=== PATIENT | male | born 1945 | race African-American/Black ===

== ENCOUNTER 2018-07-31 16:42 | Inpatient (IN) | payer OTHER ==
[~2018-07-31] VITALS: Ht 182.9 cm; Wt 85.7 kg
[~2018-07-31 16:42] MED LIST: ABAC1TAB15 PO; CHOL100011 PO; GABA600T1 PO; HYDR25TA32 PO; LISI40TA4 PO; SENN-3 PO; UMEC62.5 IH
--- NOTE | 2018-07-31 16:45 | NUR ---
PATIENT WHEELCHAIR ASSISTED TO BED 6.
[2018-07-31 16:53] VITALS: BP 118/72
--- NOTE | 2018-07-31 16:59 | NUR ---
PATIENT BIB NIECE TO THE ED WITH THE CHIEF C/O SOB X EARLIER TODAY . PT SATURATING AT 88% IN ROOM AIR, PT PUT ON 2L NASAL CANNULA NOW SAT AT 95%, EVEN AND UNLABORED BREATHING. PLACED PT ON COMFORTABLE POSITION. HOB ELEVATED. PT HAS HX OF COPD. LUNGS CLEAR. SKIN IS PINK/WARM/DRY; AAOX4. HR EVEN AND REGULAR; PT DENIES ANY CP, OR COUGH AT THIS TIME; PATIENT STATES BACK PAIN OF 10/10 AT THIS TIME; VSS; PATIENT POSITIONED FOR COMFORT; HOB ELEVATED; BEDRAILS UP X2; BED DOWN. ER MD MADE AWARE OF PT STATUS.
[2018-07-31] MEDS ORDERED: LEVOFLOXACIN 500 MG/D5W PREMIX 100 ML IV ONE (18:00)
[2018-07-31] MEDS: KETOROLAC 30 MG/ML VIAL IVP ONE ×2 (18:28→18:32)
[2018-07-31] MEDS ORDERED: MORPHINE SULFATE 4 MG/ML SYR IVP ONE (18:30)
--- NOTE | 2018-07-31 18:30 | NUR ---
PT REFUSED TORADOL FOR PAIN. DR. ALMANZA AWARE.
[2018-07-31 18:44] LABS: BASOPHILS % (AUTO) 0.3 % (0.0-2.0); EOSINOPHILS % (AUTO) 0.1 % (0.0-4.0); HEMATOCRIT 25.9 % (36-52); HEMOGLOBIN 8.2 g/dL (12.0-18.0); LYMPHOCYTES # (AUTO) 0.6 K/uL (2.0-11.5); LYMPHOCYTES % (AUTO) 12.3 % (20.5-51.1); MEAN CORPUSCULAR HEMOGLOBIN 25 pg (27-31); MEAN CORPUSCULAR HGB CONC 32 g/dL (33-37); MEAN CORPUSCULAR VOLUME 77.9 fL (80-94); MONOCYTES # (AUTO) 0.5 K/uL (0.8-1.0); MONOCYTES % (AUTO) 10.9 % (1.7-9.3); NEUTROPHILS # (AUTO) 3.6 K/uL (1.8-7.7); NEUTROPHILS % (AUTO) 76.4 % (42.2-75.2); PLATELET COUNT (AUTO) 303 K/uL (140-450); RED BLOOD CELL COUNT(AUTO) 3.32 MIL/uL (4.20-6.10); RED CELL DISTRIBUTION WIDTH 18.5 % (11.6-13.7); WHITE BLOOD COUNT (AUTO) 4.7 K/uL (4.8-10.8)
[2018-07-31 18:52] LABS: ANION GAP 8.5 (8-16); CHLORIDE 103 mmol/L (98-107); CREATININE 1.6 mg/dL (0.7-1.3); GLUCOSE 102 mg/dL (74-106); POTASSIUM 3.5 mmol/L (3.5-5.1); SODIUM SERUM 135 mmol/L (136-145); UREA NITROGEN, BLOOD 11 mg/dL (7-18)
[2018-07-31 19:06] LABS: ALBUMIN 2.5 g/dL (3.4-5.0); ASPARTATE AMINOTRANSFERASE 54 U/L (15-37); TOTAL BILIRUBIN 0.4 mg/dL (0.0-1.0)
--- NOTE | 2018-07-31 19:06 | NUR ---
REPORT GIVEN TO PRECIPITATOR SUPERVISOR RN FOR CONTINUITY OF CARE.
--- NOTE | 2018-07-31 19:06 | NUR ---
RECIEVED REPORT FROM OPAL ROSALES.
[2018-07-31 19:14] LABS: APPEARANCE,URINE CLEAR (CLEAR); BILIRUBIN,URINE NEGATIVE (NEGATIVE); BLOOD, URINE NEGATIVE (NEGATIVE); COLOR,URINE YELLOW (YELLOW); LEUKOCYTE ESTERASE ,URINE NEGATIVE (NEGATIVE); NITRITE, URINE NEGATIVE (NEGATIVE); UGLUCOSE NEGATIVE (NEGATIVE)
[2018-07-31] MEDS ORDERED: NACL 0.9% 1,000 ML IV ONE (20:15)
--- NOTE | 2018-07-31 20:20 | NUR ---
Dr. Kern evaluating patient at bedside.
[2018-07-31] MEDS ORDERED: methylPREDNISolone SS 125 MG in WATER STERILE 2 ML IV ONE (20:30)
[2018-07-31] MEDS ORDERED: MAG SULF 2000 MG/WATER PREMIX 50 ML IV ONE (20:30)
--- NOTE | 2018-07-31 21:08 | NUR ---
PT RESTING IN BED COMFORTABLY, O2 SAT AT 98% ON 1L VIA NASAL CANNULA, PT DENIES SOB AT THIS TIME. PROVIDED CRACKERS AND APPLE SAUCE FOR PT. SIDE RAIL UP X1, HOB ELEVATED, BED IN LOWEST POSITION. WILL CONTINUE TO MONITOR.
[2018-07-31] MEDS ORDERED: NACL 0.9% 1,000 ML IV SCH (22:57)
[2018-07-31] MEDS ORDERED: ACETAMINOPHEN 325 MG TAB PO PRN (23:00)
[2018-07-31] MEDS ORDERED: DOCUSATE SODIUM 100 MG GELCAP PO PRN (23:00)
[2018-07-31] MEDS ORDERED: ONDANSETRON 4 MG/2 ML VIAL IM/IVP PRN (23:00)
[2018-07-31] MEDS ORDERED: ALBUTEROL SULFATE/IPRATROPIU 3 ML SOL IH PRN (23:00)
[2018-07-31] MEDS ORDERED: HYDROcodone/APAP 5/325 MG 1 TAB TAB PO PRN (23:00)
--- NOTE | 2018-07-31 23:18 | NUR ---
RECEIVED FROM ER PER AISHA AWAKE AND ALERT. ORIENTED X 4. CLEAR SPEECH. GOOD AFFECT. TELEMETRY MONITORING. IVF SITE TO RAC #20. SKIN INTACT. DX. OF COPD EXACERBATION. ON 02 AT 2LPM/NC WITH 02 SAT OF 99%. CALL LIGHT WITH IN REACH. ORIENTED TO ROOM, CALL LIGHT AND RAPID RESPONSE USE. DENIES PAIN AT THIS TIME. MEDICATED IN ER WITH MORPHINE IVP. SEEN BY RESIDENT .
--- NOTE | 2018-07-31 23:25 | NUR ---
Patient will be admitted to care of Dr Fisher. Admited to tele via gurney with VSS. Will go to room 107B. Belongings list completed. Report to Adilene ROSALES.
[2018-07-31 23:30] LABS: MAGNESIUM 1.6 mg/dL (1.8-2.4); PHOSPHORUS 2.6 mg/dL (2.5-4.9); THYROID STIMULATING HORMONE 0.59 uIU/mL (0.34-3.74)
[2018-07-31] MEDS ORDERED: methylPREDNISolone SS 125 MG/2 ML VIAL IVP SCH (23:30)
[2018-07-31 23:59] LABS: BARBITURATE, URINE NEG. ng/ml (NEG <=200); BENZODIAZEPINE, URINE NEG. ng/mL (NEG <=200); CANNABINOID, URINE POS. ng/mL (NEG <=50); COCAINE, URINE NEG. ng/mL (NEG <=300); OPIATE, URINE NEG. ng/mL (NEG <=2000); PHENCYCLIDINE SCREEN,URINE NEG. ng/mL (NEG <=25)
--- NOTE | 2018-08-01 00:10 | NUR ---
INFLUENZA A AND B ANTIGEN SWAB TAKEN BY RESIDENT AND SUBMITTED TO LABORATORY. TELEMETRY MONITORING.
[2018-08-01 00:42] VITALS: BP 111/69
[2018-08-01 01:24] LABS: PROTHROMBIN TIME 10.6 secs (10.8-13.4)
[2018-08-01] MEDS ORDERED: ABAC1TAB15 PO (02:02)
[2018-08-01] MEDS ORDERED: GABA600T1 PO (02:02)
[2018-08-01] MEDS ORDERED: HYDR25TA32 PO (02:02)
[2018-08-01] MEDS ORDERED: CHOL100011 PO (02:02)
[2018-08-01] MEDS ORDERED: FLUT1BLS IH (02:02)
[2018-08-01] MEDS ORDERED: UMEC62.5 IH (02:02)
--- NOTE | 2018-08-01 02:56 | NUR ---
PT. PROVIDED WITH SANDWICH REQUESTED. CALL LIGHT WITH IN REACH. TELEMETRY MONITORING.
[2018-08-01] MEDS ORDERED: MAG SULF 2000 MG/WATER PREMIX 50 ML IV SCH (03:00)
[2018-08-01] MEDS ORDERED: MAG SULF 2000 MG/WATER PREMIX 50 ML IV ONE (03:24)
--- NOTE | 2018-08-01 03:30 | NUR ---
MAGNESIUM SULFATE 2 GMS IVPB INFUSING ORDERED BY RESIDENT MD. SLEEPING AT THIS TIME BUT WAKES UP EASILY WHEN TOUCHED OR CALLED BY NAME.
[2018-08-01 04:15] VITALS: BP 110/72
[2018-08-01] MEDS: methylPREDNISolone SS 125 MG/2 ML VIAL IVP SCH ×2 (06:21→14:34)
--- NOTE | 2018-08-01 07:03 | NUR ---
SLEEPING WELL THIS SHIFT. ABLE TO GO BRP AND HAD BM EARLIER X 1. VERBALIZES WELL. TELEMETRY MONITORING.
--- NOTE | 2018-08-01 07:15 | NUR ---
RECEIVED PATIENT REPORT AT BEDSIDE. PATIENT IS ASLEEP BUT AROUSABLE. NO S/S OF DISTRESS AT THIS TIME. PATIENT ON 2L O2 NC. NO SOB. PATIENT ON TELE MONITORING. BED LOWERED WITH CALL LIGHT WITHIN REACH. WILL CONTINUE TO MONITOR
--- NOTE | 2018-08-01 07:53 | NUR ---
PATIENT HAS BEEN SCREENED AND CATEGORIZED MODERATE NUTRITION RISK. PATIENT WILL BE SEEN WITHIN 3-5 DAYS OF ADMISSION. 08/03/18STANISLAV HAGAN RD
[2018-08-01 08:00] VITALS: BP 103/71
[2018-08-01] MEDS: HYDROCHLOROTHIAZIDE 25 MG TAB PO SCH (09:00)
[2018-08-01] MEDS: TRIUMEQ 600-50-300 MG TAB PO SCH (09:00)
[2018-08-01] MEDS: LORATADINE 10 MG TAB PO SCH (09:59)
[2018-08-01] MEDS: SENNA 8.6 MG TAB PO SCH (09:59)
[2018-08-01] MEDS: FAMOTIDINE 20 MG TAB PO SCH (10:00)
[2018-08-01] MEDS: ASCORBIC ACID 500 MG TAB PO SCH (10:00)
[2018-08-01] MEDS: CHOLECALCIFEROL 1,000 IU TAB PO SCH (10:00)
[2018-08-01] MEDS: AZITHROMYCIN 250 MG TAB PO SCH (10:00)
[2018-08-01] MEDS: FERROUS SULFATE 325 MG TABEC PO SCH (10:01)
[2018-08-01] MEDS: MORPHINE SULFATE 2 MG/ML SYR IVP PRN (11:25)
[2018-08-01 12:00] VITALS: BP 108/71
[2018-08-01] MEDS: GABAPENTIN 100 MG CAP PO SCH ×2 (13:28→17:14)
[2018-08-01] MEDS ORDERED: SODIUM FERRIC GLUCONATE 125 MG in NACL 0.9% 100 ML IV SCH (13:30)
[2018-08-01 13:49] LABS: CARBON DIOXIDE 26.2 mmol/L (21-32); CHLORIDE 107 mmol/L (98-107); CREATININE 1.6 mg/dL (0.7-1.3); GLUCOSE 126 mg/dL (74-106); POTASSIUM 4.2 mmol/L (3.5-5.1); SODIUM SERUM 137 mmol/L (136-145); UREA NITROGEN, BLOOD 18 mg/dL (7-18)
[2018-08-01] MEDS: NACL 0.9% 1,000 ML IV SCH (14:30)
--- NOTE | 2018-08-01 14:57 | NUR ---
PATIENT LEFT THE UNIT FOR CT
[2018-08-01 17:27] VITALS: BP 109/77
--- NOTE | 2018-08-01 19:23 | NUR ---
SEEN PT. AWAKE AND ALERT WATCHING TV. NO COMPLAINTS OF ANY PAIN. ABLE TO VERBALIZE NEEDS WELL. CALL LIGHT WITH IN REACH AND ENCOURAGED TO CALL FOR ANY HELP HE MAY NEED OR IF IN PAIN. ROM X 4. NO SOB AT THIS TIME.
--- NOTE | 2018-08-01 19:25 | NUR ---
PATIENT REPORT GIVEN AT BEDSIDE. PATIENT ENDORSED IN STABLE CONDITION
[2018-08-01 19:57] VITALS: BP 120/92
--- NOTE | 2018-08-01 21:11 | NUR ---
PT. PROVIDED WITH TUNA SANDWICH REQUESTED RT "I DONT EAT PORK W/C WAS MY DINNER" SATISFIED WITH SANDWICH NOW. PT. WATCHING TV. GOOD AFFECT . RE-CHECKED SAT AT ROOM AIR 98 %. INFORMED PT. OF SAT AT ROOM AIR. ABLE TO USE CALL LIGHT WELL.
--- NOTE | 2018-08-01 23:00 | NUR ---
PT.S IVF SITE TO RAC INFILTRATED. DISCONTINUED WITH TIP INTACT. COVERED WITH BAND AID.TOLERATED WELL. CHARGE NURSE INSERTED NEW IVF SITE TO RIGHT FOOT #24 WITH RESIDENT MD ORDER AND APPROVAL RT PT. STATED" ONLY OPEN FOR IVF SITE IS MY FOOT. THE REST IS SCLEROSED". NEW IVF SITE INSERTED WITH GOOD BLOOD RETURN.
[2018-08-02] MEDS: methylPREDNISolone SS 125 MG/2 ML VIAL IVP SCH (00:07)
[2018-08-02 01:29] VITALS: BP 115/74
[2018-08-02 04:25] VITALS: BP 112/70
[2018-08-02] MEDS: methylPREDNISolone SS 40 MG/ML VIAL IVP SCH ×3 (04:44→15:00)
--- NOTE | 2018-08-02 04:46 | NUR ---
SOLUMEDROL IVP 40 MG SCHEDULE FOR 0500 ADMINISTERED. TOLERATED WELL. NO COMPLAINTS DONE.
[2018-08-02 06:42] LABS: BASOPHILS % (AUTO) 0.4 % (0.0-2.0); EOSINOPHILS % (AUTO) 0.1 % (0.0-4.0); HEMATOCRIT 24.5 % (36-52); HEMOGLOBIN 7.8 g/dL (12.0-18.0); LYMPHOCYTES # (AUTO) 0.4 K/uL (2.0-11.5); LYMPHOCYTES % (AUTO) 4.2 % (20.5-51.1); MEAN CORPUSCULAR HEMOGLOBIN 25 pg (27-31); MEAN CORPUSCULAR HGB CONC 32 g/dL (33-37); MEAN CORPUSCULAR VOLUME 78.8 fL (80-94); MONOCYTES # (AUTO) 0.3 K/uL (0.8-1.0); MONOCYTES % (AUTO) 3.3 % (1.7-9.3); NEUTROPHILS # (AUTO) 8.5 K/uL (1.8-7.7); PLATELET COUNT (AUTO) 286 K/uL (140-450); RED BLOOD CELL COUNT(AUTO) 3.11 MIL/uL (4.20-6.10); RED CELL DISTRIBUTION WIDTH 18.8 % (11.6-13.7); WHITE BLOOD COUNT (AUTO) 9.3 K/uL (4.8-10.8)
[2018-08-02 06:48] LABS: ANION GAP 8.6 (8-16); CARBON DIOXIDE 23.6 mmol/L (21-32); CHLORIDE 110 mmol/L (98-107); CREATININE 1.4 mg/dL (0.7-1.3); GLUCOSE 113 mg/dL (74-106); POTASSIUM 4.2 mmol/L (3.5-5.1); SODIUM SERUM 138 mmol/L (136-145); UREA NITROGEN, BLOOD 21 mg/dL (7-18)
--- NOTE | 2018-08-02 07:18 | NUR ---
ENDORSED TO T HE NEXT RN FOR CONTINUITY OF CARE. SLEEPING. WAKES UP EASILY WHEN CALLED BY NAME. IVF SITE TO RIGHT FOOT INTACT AND NOT INFILTRATED.
--- NOTE | 2018-08-02 07:19 | NUR ---
RECEIVED REPORT FROM COOK CHILI NURSE. PT IN STABLE CONDITION. RESPIRATIONS EVEN AND UNLABORED. IV INTACT. SAFETY MEASURES IN PLACE. BED IN LOW POSITION. BED ALARM ON. CALL LIGHT AT BEDSIDE. WILL CONTINUE TO MONITOR.
[2018-08-02 08:00] VITALS: BP 118/85
[2018-08-02 08:25] LABS: FOLIC ACID 10.8 ng/mL (>3.0)
[2018-08-02] MEDS: ALBUTEROL SULFATE/IPRATROPIU 3 ML SOL IH SCH ×3 (08:30→20:45)
[2018-08-02] MEDS: LORATADINE 10 MG TAB PO SCH (08:33)
[2018-08-02] MEDS: SENNA 8.6 MG TAB PO SCH (08:33)
[2018-08-02] MEDS: AZITHROMYCIN 250 MG TAB PO SCH (08:33)
[2018-08-02] MEDS: GABAPENTIN 100 MG CAP PO SCH ×3 (08:34→17:11)
[2018-08-02] MEDS: CHOLECALCIFEROL 1,000 IU TAB PO SCH (08:34)
[2018-08-02] MEDS: FERROUS SULFATE 325 MG TABEC PO SCH (08:35)
[2018-08-02] MEDS: FAMOTIDINE 20 MG TAB PO SCH (08:35)
[2018-08-02] MEDS: HYDROCHLOROTHIAZIDE 25 MG TAB PO SCH (08:35)
[2018-08-02] MEDS: ASCORBIC ACID 500 MG TAB PO SCH (08:35)
[2018-08-02] MEDS: TRIUMEQ 600-50-300 MG TAB PO SCH (08:37)
--- NOTE | 2018-08-02 09:45 | NUR ---
ABLE TO AMBULATE WITH PT DOWN TO EXIT DOOR AND BACK TO ROOM 107B. PT TOLERATED WELL. BED IN LOW POSITION. BED ALARM ON. CALL LIGHT AT BEDSIDE. WILL CONTINUE TO MONITOR.
[2018-08-02 11:31] LABS: MAGNESIUM 2.2 mg/dL (1.8-2.4); PHOSPHORUS 2.8 mg/dL (2.5-4.9)
[2018-08-02] MEDS: MORPHINE SULFATE 2 MG/ML SYR IVP PRN (11:33)
[2018-08-02] MEDS ORDERED: CYANOCOBALAMIN 1000 MCG/ML VIAL IM ONE (11:50)
[2018-08-02 12:00] VITALS: BP 118/82
--- NOTE | 2018-08-02 12:10 | NUR ---
PT SITTING IN BED WITH FAMILY AT BEDSIDE. RESPIRATIONS EVEN AND UNLABORED. CALL LIGHT AT BEDSIDE. BED ALARM ON. BED IN LOW POSITION. WILL CONTINUE TO MONITOR.
[2018-08-02] MEDS: NACL 0.9% 1,000 ML IV SCH (14:30)
--- NOTE | 2018-08-02 15:00 | NUR ---
DR. YUAN DISCONTINUED SOLU MEDROL. 1500 MEDICATION NOT GIVEN.
[2018-08-02 16:00] VITALS: BP 111/84
--- NOTE | 2018-08-02 17:00 | NUR ---
GAVE ORDERED DUE MEDICATION AT THIS TIME. PT SITTING UP IN BED IN STABLE CONDITION. WILL CONTINUE TO MONITOR.
--- NOTE | 2018-08-02 19:20 | NUR ---
RECEIVED BEDSIDE REPORT FROM CONNIE TOTH, PATIENT IN BED, NO SIGNS OF RESPIRATORY DISTRESS, RR 18/MIN, EVEN AND UNLABORED. DENIES PAIN, NOTED HR 115. ON FALL RISK, PATIENT IS LEGALLY BLIND IN LEFT EYE, EXPLAINED TO USE CALL LIGHT IF NEEDING ASSISTANCE. IV IN RIGHT FOOT, 22 G, PATIENT INFUSING NS AT 40 ML/HR. EXPLAINED PLAN OF CARE UPDATED BOARD, WILL CONTINUE TO MONITOR.
--- NOTE | 2018-08-02 19:20 | NUR ---
GAVE REPORT TO FLOWER CHENILLER NURSE FOR CONTINUITY OF CARE. PT IN STABLE CONDITION.
[2018-08-02 20:00] VITALS: BP 111/71
[2018-08-02] MEDS: predniSONE 20 MG TAB PO SCH (21:23)
--- NOTE | 2018-08-02 21:53 | NUR ---
DUE MEDICATIONS GIVEN, PATIENT TOLERATED WELL, EDUCTION PROVIDED, PATIENT VERBALIZED UNDERSTANDING. WILL CONTINUE TO MONITOR.
[2018-08-03] VITALS: BP 109/66
--- NOTE | 2018-08-03 | NUR ---
V/S TAKEN ALL WITHIN BASELINE, CALL LIGHT WITHIN REACH, WILL CONTINUE TO MONITOR.
[2018-08-03] MEDS: NACL 0.9% 1,000 ML IV SCH (00:10)
--- NOTE | 2018-08-03 00:46 | NUR ---
STARTED IVF NS AT 40 ML/HR.
[2018-08-03 04:00] VITALS: BP 115/60
--- NOTE | 2018-08-03 04:00 | NUR ---
V/S TAKEN ALL WITHIN BASELINE. PATIENT AMBULATED TO RESTROOM, STEADY GAIT.
[2018-08-03] MEDS ORDERED: AZIT250T3 PO (06:45)
[2018-08-03] MEDS ORDERED: PRED20TA5 PO ×3 (06:46→06:53)
[2018-08-03] MEDS: ALBUTEROL SULFATE/IPRATROPIU 3 ML SOL IH SCH (07:14)
--- NOTE | 2018-08-03 07:16 | NUR ---
ENDORSED PATIENT TO DAY SHIFT NURSE GLADYS PATIENT STABLE.
--- NOTE | 2018-08-03 07:22 | NUR ---
RECEIVED BEDSIDE REPORT FROM GRADER PATROL RN SUMMER. PATIENT AWAKE IN BED, NO S/S DISTRESS. AOX4. SKIN INTACT. NO C/O PAIN OR DISCOMFORT. RESPIRATIONS EVEN AND UNLABORED, ON RA. PATIENT IS LEGALLY BLIND IN LEFT EYE, EXPLAINED TO USE CALL LIGHT IF NEEDING ASSISTANCE. PER GRADER PATROL RN, PT IS AMBULATORY. PT VERBALIZED COMPLETE UNDERSTANDING. IV IN RIGHT FOOT, 24 G, PATIENT INFUSING NS AT 40 ML/HR. EXPLAINED PLAN OF CARE UPDATED BOARD, WILL CONTINUE TO MONITOR.
[2018-08-03 07:36] LABS: HEMATOCRIT 24.4 % (36-52); HEMOGLOBIN 7.7 g/dL (12.0-18.0); LYMPHOCYTES # (AUTO) 0.4 K/uL (2.0-11.5); LYMPHOCYTES % (AUTO) 4.1 % (20.5-51.1); MEAN CORPUSCULAR HEMOGLOBIN 25 pg (27-31); MEAN CORPUSCULAR HGB CONC 32 g/dL (33-37); MEAN CORPUSCULAR VOLUME 79.4 fL (80-94); MONOCYTES # (AUTO) 0.4 K/uL (0.8-1.0); MONOCYTES % (AUTO) 4.3 % (1.7-9.3); NEUTROPHILS # (AUTO) 9.5 K/uL (1.8-7.7); NEUTROPHILS % (AUTO) 91.6 % (42.2-75.2); PLATELET COUNT (AUTO) 240 K/uL (140-450); RED BLOOD CELL COUNT(AUTO) 3.07 MIL/uL (4.20-6.10); WHITE BLOOD COUNT (AUTO) 10.3 K/uL (4.8-10.8)
[2018-08-03 08:00] VITALS: BP 113/71
[2018-08-03 08:16] LABS: ALBUMIN 2.5 g/dL (3.4-5.0); ANION GAP 11.2 (8-16); ASPARTATE AMINOTRANSFERASE 37 U/L (15-37); CARBON DIOXIDE 22.6 mmol/L (21-32); CHLORIDE 110 mmol/L (98-107); CREATININE 1.5 mg/dL (0.7-1.3); GLUCOSE 94 mg/dL (74-106); PHOSPHORUS 2.8 mg/dL (2.5-4.9); POTASSIUM 3.8 mmol/L (3.5-5.1); SODIUM SERUM 140 mmol/L (136-145); TOTAL BILIRUBIN 0.2 mg/dL (0.0-1.0); UREA NITROGEN, BLOOD 21 mg/dL (7-18)
[2018-08-03] MEDS ORDERED: methylPREDNISolone SS 40 MG/ML VIAL IVP SCH (09:00)
[2018-08-03] MEDS ORDERED: ALBU1SPR IH (09:23)
[2018-08-03] MEDS: FERROUS SULFATE 325 MG TABEC PO SCH (10:02)
[2018-08-03] MEDS: GABAPENTIN 100 MG CAP PO SCH (10:02)
[2018-08-03] MEDS: predniSONE 20 MG TAB PO SCH (10:03)
[2018-08-03] MEDS: FAMOTIDINE 20 MG TAB PO SCH (10:03)
[2018-08-03] MEDS: SENNA 8.6 MG TAB PO SCH (10:03)
[2018-08-03] MEDS: CHOLECALCIFEROL 1,000 IU TAB PO SCH (10:04)
[2018-08-03] MEDS: ASCORBIC ACID 500 MG TAB PO SCH (10:04)
[2018-08-03] MEDS: LORATADINE 10 MG TAB PO SCH (10:04)
[2018-08-03] MEDS: HYDROCHLOROTHIAZIDE 25 MG TAB PO SCH (10:04)
[2018-08-03] MEDS: AZITHROMYCIN 250 MG TAB PO SCH (10:04)
[2018-08-03] MEDS: TRIUMEQ 600-50-300 MG TAB PO SCH (10:05)
[2018-08-03] MEDS: MORPHINE SULFATE 2 MG/ML SYR IVP PRN (10:27)
[2018-08-03] MEDS ORDERED: SULF-59 PO (10:38)
[2018-08-03 12:00] VITALS: BP 111/74
--- NOTE | 2018-08-03 13:10 | NUR ---
DISCHARGE PAPERWORK, INCLUDING INSTRUCTIONS TO F/U WITH PCP, OIL RIG DRILLER, ID , GIVEN TO PT. NEW RX TEACHING GIVEN. MEDICATION RECONCILIATION TEACHING GIVEN. PATIENT REFUSED FLU VACCINE AND PNEUMOVAX. VACCINATION DECLINATION TEACHING GIVEN. INFORMED PT THAT WE WILL MUD WORKER HOME MEDICATIONS FROM INPATIENT PHARMACY BEFORE LEAVING. PER PATIENT, NIECE HAD ALREADY PICKED UP HOME MEDS EARLIER. SINCE HOME MED STICKER STILL ON CHART, INFORMED PT WE WILL STILL STOP BY PHARMACY UPON D/C. IV SITE REMOVED WITH MINIMAL BLOOD LOSS AND LUMEN COMPLETELY INTACT. PT IN STABLE CONDITION. Addendum: 08/03/18 at 1346 by Vero Alcantara Meng, RN INFORMED PT THAT HOME HEALTH PHYSICAL THERAPY WILL BE SET UP AND PT WILL BE CALLED.
--- NOTE | 2018-08-03 13:21 | NUR ---
WHEELCHAIR AT BEDSIDE. PT STATES HE NEEDS TO USE THE URINAL. URINAL PROVIDED, PATIENT STATES HE NEEDS "A FEW MINUTES". INFORMED FAMILY MEMBER TO CALL FOR RN WHEN PT IS READY.
--- NOTE | 2018-08-03 13:25 | NUR ---
PATIENT HAS LEFT UNIT WITHOUT INFORMING STAFF. IV HAD ALREADY BEEN REMOVED AND ID BANDS REMOVED. PT HAS TAKEN ALL OF PERSONAL BELONGINGS.
--- NOTE | 2018-08-03 13:48 | NUR ---
PER INPATIENT PHARMACY, THERE ARE HOME MEDS AT PHARMACY. WILL CALL AND INFORM PT.
--- NOTE | 2018-08-03 13:49 | NUR ---
CALLED PT [phone] AND LEFT MESSAGE REGARDING HOME MEDS THAT HAVE BEEN LEFT AT INPATIENT PHARMACY.
--- NOTE | 2018-08-03 14:00 | NUR ---
Head Of Loss Prevention Notes: I Faxed Patient's Clinical information and MD order to get Home Health for Physical Therapy at [facility] .
--- NOTE | 2018-08-03 14:10 | NUR ---
Buckle Attaching Machine Operator Notes: Cherise From admissions at [facility] called me back letting me know that she received the faxed clinical information. Cherise also stated that they do not contract with [employer]. I thanked her for the information, and ended the call. I informed pipe cleaner Alem. Quenching Car Operator/cooler room worker will follow up on Sunday.
--- NOTE | 2018-08-06 07:22 | NUR ---
SPOKE WITH GLADYS FROM [facility]. FAXED THE FACE SHEET, ORDER AND PT NOTES TO HER AT [phone]. SHE SAID SHE WOULD ARRANGE FOR HOME HEALTH P.T.
--- NOTE | 2018-08-06 10:08 | NUR ---
RECEIVED A CALL FROM GLADYS FROM [employer]. SHE ARRANGED HOME HEALTH FOR P.T. WITH [facility] [phone].
== END 2018-08-03 13:25 | disposition home health service (06) | DRG 682 ==
LOC: MED 16:42 → MTU 22:57
PROVIDERS: ADMIT General Practice; ATTEND General Practice
DX: N17.0 Acute kidney failure with tubular necrosis (principal); J96.20 Acute and chronic respiratory failure, unspecified whether with hypoxia or hypercapnia; E43 Unspecified severe protein-calorie malnutrition; E87.1 Hypo-osmolality and hyponatremia; E88.01 Alpha-1-antitrypsin deficiency; J43.9 Emphysema, unspecified; E87.8 Other disorders of electrolyte and fluid balance, not elsewhere classified; N18.3 Chronic kidney disease, stage 3 (moderate); Z99.81 Dependence on supplemental oxygen; B19.20 Unspecified viral hepatitis C without hepatic coma; F12.90 Cannabis use, unspecified, uncomplicated; I12.9 Hypertensive chronic kidney disease with stage 1 through stage 4 chronic kidney disease, or unspecified chronic kidney disease; Z21 Asymptomatic human immunodeficiency virus [HIV] infection status; Z68.25 Body mass index [BMI] 25.0-25.9, adult; Z87.891 Personal history of nicotine dependence; Z88.0 Allergy status to penicillin; Z79.899 Other long term (current) drug therapy; Z85.46 Personal history of malignant neoplasm of prostate; Z83.3 Family history of diabetes mellitus; Z80.42 Family history of malignant neoplasm of prostate; Z82.5 Family history of asthma and other chronic lower respiratory diseases
CPT/HCPCS: 36415; 36600; 71045; 71250; 80048; 80053; 80305; 81003; 82150; 82550; 82607; 82728; 82746; 82803; 83036; 83540; 83605; 83690; 83735; 83880; 84100; 84443; 84484; 85025; 85045; 85610; 85730; 86360; 86704; 86706; 86708; 86709; 86803; 87040; 87081; 87086; 87340; 87804; 93005; 93970; 94640; 96365; 96366; 96367; 96375; 97116; 97530; 99291; J0696; J1885; J1956; J2270; J2916; J2920; J2930; J3475; J7030; J7060; J7512; J7620; Q0092

== ENCOUNTER 2018-12-03 23:40 | Inpatient (IN) | payer OTHER ==
[~2018-12-03] VITALS: Ht 182.9 cm; Wt 67.1 kg
[~2018-12-03 23:40] MED LIST changes: +AZIT250T3 PO; +FLUT1BLS IH; -LISI40TA4 PO; +PRED20TA5 PO; +SULF-59 PO
[2018-12-03 23:50] VITALS: BP 127/65
[2018-12-04] VITALS (10 sets, daily range): BP systolic 102–138; BP diastolic 59–100
--- NOTE | 2018-12-04 00:09 | NUR ---
PT TAKEN TO BED 7 VIA W/C.
[2018-12-04] MEDS ORDERED: FURO-572 PO (00:19)
[2018-12-04] MEDS ORDERED: ROFL250T PO (00:19)
[2018-12-04] MEDS ORDERED: ACET-787 PO (00:19)
[2018-12-04] MEDS ORDERED: ASPI-1718 PO (00:19)
[2018-12-04] MEDS ORDERED: GABA600T12 PO (00:19)
--- NOTE | 2018-12-04 00:45 | NUR ---
73 YO M BIB NIECE AND SISTER PRESENTS TO ED C/O GERNERALIZED EDEMA X 1 WEEK. PT STATES THIS HAS NEVER HAPPENED BEFORE. PT STATES SWELLING STARTED ABOUT 1 WEEK AGO AND HAS GOTTEN PROGRESSIVELY WORSE OVER THE PAST 2-3 DAYS. 4+ PITTING EDEMA NOTED TO BILATERAL LOWER EXTREMETIES. NON-PITTING BILATERAL HAND EDEMA NOTED. ABDOMINAL DISTENTION NOTED. PT STATES HIS FACE AND ARMS ALSO FEEL SWOLLEN. -- PT AWAKE, ALERT, ORIENTED X 4. SPEECH IS CLEAR. ANSWERING QUESTIONS APPROPRIATELY. CALM, COOPERATIVE. -- SKIN COLOR NORMAL, DRY, WARM. BREATHING EVEN, UNLABORED. VSS. PMH-- COPD, ANEMIA, HIV +, CHRONIC BACK PAIN
--- NOTE | 2018-12-04 01:10 | NUR ---
XRAY AT BEDSIDE.
--- NOTE | 2018-12-04 01:13 | NUR ---
PERIPHERAL IV ACCESS ATTEMPTED WITH US AND THROUGH EJ WERE UNSUCCESSFUL. DR. ALMANZA NOTIFIED. WILL SET UP FOR CENTRAL LINE.
--- NOTE | 2018-12-04 01:22 | NUR ---
CONSENT FOR CENTRAL LINE INSERTION SIGNED BY PATIENT AND DR. ALMANZA.
--- NOTE | 2018-12-04 02:00 | NUR ---
FEMORAL CENTRAL LINE PROCEDURE BEGAN WITH DR. ALMANZA. RESIDENTS AND RN AT BEDSIDE.
--- NOTE | 2018-12-04 02:30 | NUR ---
CENTRAL LINE ESTABLISHED THROUGH RIGHT FEMORAL SITE. LINE IS PATENT. PT TOLERATED PROCEDURE WELL.
--- NOTE | 2018-12-04 02:43 | NUR ---
RN DRAWING LABS FROM CENTRAL LINE.
--- NOTE | 2018-12-04 02:51 | NUR ---
EKG PERFORMED AT BEDSIDE
--- NOTE | 2018-12-04 03:00 | NUR ---
PT SLEEPING COMFORTABLY IN BED. VSS. BREATHING EVEN, UNLABORED.
[2018-12-04 03:28] LABS: ALBUMIN 2.2 g/dL (3.4-5.0); ANION GAP 10.6 (8-16); ASPARTATE AMINOTRANSFERASE 29 U/L (15-37); CARBON DIOXIDE 23.9 mmol/L (21-32); CHLORIDE 105 mmol/L (98-107); CREATININE 1.4 mg/dL (0.7-1.3); GLUCOSE 95 mg/dL (74-106); SODIUM SERUM 137 mmol/L (136-145); TOTAL BILIRUBIN 0.3 mg/dL (0.0-1.0); UREA NITROGEN, BLOOD 9 mg/dL (7-18)
[2018-12-04 03:49] LABS: POTASSIUM 2.5 mmol/L (3.5-5.1)
[2018-12-04 03:50] LABS: HEMOGLOBIN 3.5 g/dL (12.0-18.0); RED BLOOD CELL COUNT(AUTO) 1.58 MIL/uL (4.20-6.10); WHITE BLOOD COUNT (AUTO) 4.4 K/uL (4.8-10.8)
[2018-12-04 03:51] LABS: HEMATOCRIT 11.9 % (36-52); MEAN CORPUSCULAR HEMOGLOBIN 22 pg (27-31); MEAN CORPUSCULAR HGB CONC 30 g/dL (33-37); MEAN CORPUSCULAR VOLUME 75.1 fL (80-94); PLATELET COUNT (AUTO) 182 K/uL (140-450); RED CELL DISTRIBUTION WIDTH 20.8 % (11.6-13.7)
[2018-12-04 03:52] LABS: LYMPHOCYTES % (MANUAL) 19 % (20-46); MONOCYTES % (MANUAL) 8 % (5-12)
[2018-12-04] MEDS ORDERED: NACL 0.9% 1,000 ML IV SCH (03:56)
[2018-12-04] MEDS ORDERED: DOCUSATE SODIUM 100 MG GELCAP PO PRN (04:00)
[2018-12-04] MEDS ORDERED: ACETAMINOPHEN 325 MG TAB PO PRN (04:00)
[2018-12-04] MEDS ORDERED: ONDANSETRON 4 MG/2 ML VIAL IM/IVP PRN (04:00)
[2018-12-04] MEDS ORDERED: POTASSIUM CHLORIDE 10 MEQ TABER PO SCH ×2 (04:30→05:30)
[2018-12-04 04:34] LABS: CHOL/HDL RATIO 2.2 (1-4.5); MAGNESIUM 1.5 mg/dL (1.8-2.4); PHOSPHORUS 2.3 mg/dL (2.5-4.9); THYROID STIMULATING HORMONE 1.09 uIU/mL (0.34-3.74)
--- NOTE | 2018-12-04 04:39 | NUR ---
Patient arrived in unit via gurney, assisted by two RELIEF DOCKING MASTER's; patient could not ambulate from gurney to bed. Patient is A/Ox4, able to make needs known, on bedrest. Introduced self, updated board, oriented patient to room and hospital environment. No SOB or distress noted, on room air. Chief complaint of bilateral lower extremity edema. Diagnosis is Anemia, elevated troponin. IV site is central line right femoral artery, triple lumen. Skin intact. Vitals signs upon admission are as follows: BP 114/65, RR 17, HR 91, Temp 98.2, O2Sat 92% on room air. Critical labs (low) upon admission are as follows: HgB 3.5, Hct 11.9, Potassium 2.5. Critical labs (high) are troponin 0.240. Bed in the lowest position, call light within reach. Initial assessment done. Will continue to monitor.
[2018-12-04] MEDS ORDERED: ALBUTEROL SULFATE/IPRATROPIU 3 ML SOL IH PRN (04:40)
--- NOTE | 2018-12-04 04:45 | NUR ---
Patient will be admitted to care of Dr. Fisher. Admited to TELE. Will go to room 125B. Belongings list completed. Report to CONNIE Garcia.
[2018-12-04] MEDS ORDERED: LEVOFLOXACIN 500 MG/D5W PREMIX 100 ML IV SCH (05:30)
[2018-12-04] MEDS ORDERED: KCL 20 MEQ/WATER INJ PREMIX 300 ML IV SCH (05:30)
[2018-12-04] MEDS ORDERED: methylPREDNISolone SS 125 MG/2 ML VIAL IVP SCH (05:30)
[2018-12-04] MEDS: DEXT 5% / NACL 0.9% 500 ML IV SCH (05:35)
[2018-12-04] MEDS ORDERED: SODIUM PHOS / POTASSIUM PHOS 1 PKT PDR PO SCH (06:00)
[2018-12-04 06:10] LABS: PROTHROMBIN TIME 11.2 secs (10.8-13.4)
--- NOTE | 2018-12-04 06:24 | NUR ---
RECEIVED PATIENT ON ROOM AIR, PULSE OX SAT 88%. PLACED ON 2L NC. PATIENT STATES HE WEARS OXYGEN AT 2LPM AT HOME. NO RESPIRATORY DISTRESS NOTED. DENIES SOB. NO PRN HHN INDICATED AT THIS TIME. WILL CONTINUE TO MONITOR.
[2018-12-04] MEDS ORDERED: POTASSIUM CHLORIDE 60 MEQ, LIDOCAINE MPF 1% - 5 mL VIAL 25 MG in NACL 0.9% 250 ML IV SCH (07:00)
[2018-12-04] MEDS ORDERED: MAG SULF 2000 MG/WATER PREMIX 100 ML IV SCH (07:00)
--- NOTE | 2018-12-04 07:20 | NUR ---
Endorsed patient to AM shift RN for continuity of care; patient in stable condition.
--- NOTE | 2018-12-04 07:21 | NUR ---
RECEIVED BEDSIDE REPORT FROM PLANNING DIVISION SUPERINTENDENT NURSE. PATIENT IS AWAKE, ALERT AND ORIENTEDX4. NO SIGNS OF DISTRESS ON 2L NC. PATIENT HAS A WHEELCHAIR. SKIN IS INTACT. R FEMORAL TRIPLE LUMEN POTASSIUM INFUSING 10. AND D5NS AT 100. CLEAN, DRY AND INTACT. PATIENT IS CONTINENT. NPO EXCEPT MEDS. PATIENT IS AWARE. BED IN LOW POSITION. CALL LIGHT WITHIN REACH. PATIENT ABLE TO MAKE NEEDS KNOWN. WILL CONTINUE TO MONITOR THE PATIENT
--- NOTE | 2018-12-04 07:57 | NUR ---
PATIENT HAS BEEN SCREENED AND CATEGORIZED MODERATE NUTRITION RISK. PATIENT WILL BE SEEN WITHIN 3-5 DAYS OF ADMISSION. 12/06/18STANISLA[address] H[address]
[2018-12-04] MEDS: HYDROcodone/APAP 10/325 MG 1 TAB TAB PO PRN (08:21)
--- NOTE | 2018-12-04 08:50 | NUR ---
STARTED BLOOD TRANSFUSION VITALS ARE WITHIN NORMAL LIMITS. CHARTED ON THE BLOOD TRANSFUSION PAPER.
[2018-12-04] MEDS: GABAPENTIN 300 MG CAP PO SCH ×2 (09:00→20:31)
[2018-12-04] MEDS: FUROSEMIDE 20 MG TAB PO SCH (09:00)
[2018-12-04] MEDS ORDERED: NON-FORMULARY ITEM (Gabapentin 600 MG) PO SCH (09:00)
[2018-12-04] MEDS: LACTOBACILLUS RHAMNOSUS GG 1 EACH CAP PO SCH (09:00)
[2018-12-04 09:40] LABS: BILIRUBIN,URINE NEGATIVE (NEGATIVE); BLOOD, URINE NEGATIVE (NEGATIVE); LEUKOCYTE ESTERASE ,URINE NEGATIVE (NEGATIVE); NITRITE, URINE NEGATIVE (NEGATIVE); UGLUCOSE NEGATIVE (NEGATIVE)
[2018-12-04 09:52] LABS: BARBITURATE, URINE NEG. ng/ml (NEG <=200); BENZODIAZEPINE, URINE NEG. ng/mL (NEG <=200); CANNABINOID, URINE POS. ng/mL (NEG <=50); COCAINE, URINE NEG. ng/mL (NEG <=300); OPIATE, URINE POS. ng/mL (NEG <=2000); PHENCYCLIDINE SCREEN,URINE NEG. ng/mL (NEG <=25)
[2018-12-04 10:17] LABS: APPEARANCE,URINE SLIGHTLY HAZY (CLEAR); COLOR,URINE YELLOW (YELLOW)
[2018-12-04 10:18] LABS: RBC,URINE NONE SEEN /HPF (0-5)
--- NOTE | 2018-12-04 10:19 | NUR ---
PATIENT STILL TOLERATING THE TRANSFUSION WELL. NO COMPLAINTS, NO CHILLS NO FEVER NO SIGNS OF REACTION AT THIS TIME. WILL CONTINUE TO MONITOR THE PATIENT
--- NOTE | 2018-12-04 12:05 | NUR ---
BLOOD TRANSFUSION DONE. NO REACTION AT THIS TIME. VITALS WNL. DR SCOTT SAW THE PATIENT. PATIENT GOT EGD CONSENT SIGNED, MAY DO POSSIBLE EGD TODAY
--- NOTE | 2018-12-04 12:50 | NUR ---
PATIENT GOT BLOOD DRAWN THROUGH FEMORAL LINE.
--- NOTE | 2018-12-04 12:53 | NUR ---
PATIENT PICKED UP BY OR NURSES TO GET EGD DONE
[2018-12-04 13:19] LABS: BASOPHILS % (AUTO) 0.6 % (0.0-2.0); EOSINOPHILS % (AUTO) 0.2 % (0.0-4.0); LYMPHOCYTES # (AUTO) 0.1 K/uL (2.0-11.5); LYMPHOCYTES % (AUTO) 4.1 % (20.5-51.1); MEAN CORPUSCULAR HEMOGLOBIN 25 pg (27-31); MEAN CORPUSCULAR HGB CONC 32 g/dL (33-37); MEAN CORPUSCULAR VOLUME 78.9 fL (80-94); MONOCYTES # (AUTO) 0.1 K/uL (0.8-1.0); NEUTROPHILS # (AUTO) 2.5 K/uL (1.8-7.7); NEUTROPHILS % (AUTO) 93.1 % (42.2-75.2); PLATELET COUNT (AUTO) 147 K/uL (140-450); RED CELL DISTRIBUTION WIDTH 20.4 % (11.6-13.7); WHITE BLOOD COUNT (AUTO) 2.6 K/uL (4.8-10.8)
[2018-12-04 13:34] LABS: ANION GAP 10.3 (8-16); CARBON DIOXIDE 24.2 mmol/L (21-32); CHLORIDE 107 mmol/L (98-107); CREATININE 1.4 mg/dL (0.7-1.3); GLUCOSE 112 mg/dL (74-106); POTASSIUM 3.5 mmol/L (3.5-5.1); SODIUM SERUM 138 mmol/L (136-145); UREA NITROGEN, BLOOD 9 mg/dL (7-18)
[2018-12-04 13:39] LABS: HEMATOCRIT 12.6 % (36-52)
[2018-12-04] MEDS ORDERED: fentaNYL 0.05 MG/ML VIAL ONE (13:48)
[2018-12-04] MEDS ORDERED: MIDAZOLAM 2 MG/2 ML VIAL ONE (13:48)
--- NOTE | 2018-12-04 14:40 | NUR ---
blood transfusion started. no signs of reactions. will continue to monitor. vitals wnl.
[2018-12-04] MEDS ORDERED: fentaNYL 0.05 MG/ML VIAL IVP ONE (14:50)
[2018-12-04] MEDS ORDERED: MIDAZOLAM 2 MG/2 ML VIAL IVP ONE (14:50)
--- NOTE | 2018-12-04 16:30 | NUR ---
BLOOD TRANSFUSION STILL GOING. NO REACTION AT THIS TIME. VITALS WNL. HOME CARE GIVER AT BEDSIDE
--- NOTE | 2018-12-04 18:20 | NUR ---
BLOOD TRANSFUSION DONE. NO REACTION NOTED. PATIENT TOLERATED WELL. CALLED LAB TO DO BLOOD DRAW OF CBC
[2018-12-04] MEDS: SODIUM FERRIC GLUCONATE 125 MG in NACL 0.9% 100 ML IV SCH (18:40)
--- NOTE | 2018-12-04 18:41 | NUR ---
ADMINISTERED MEDS. PATIENT TOLERATING WELL. EDUCATED ON SIDE EFFECTS. NEED TO ENDORSED SECOND BAG OF POTASSIUM AND 2 BAGS OF MAGNESIUM TO SPINNING LATHE OPERATOR AUTOMATIC NURSE. CANNOT RUN MEDS WITH BLOOD TRANSFUSION. BLOOD TRANSFUSION JUST ENDED
--- NOTE | 2018-12-04 19:00 | NUR ---
GAVE BEDSIDE REPORT TO PHARMACY DATA ANALYST NURSE. PATIENT ENDORSED IN STABLE CONDITION. ENDORSED 2ND BAG OF POTASSIUM TO CONNIE HITCHCOCK AND 2 MG RIDERS.
--- NOTE | 2018-12-04 19:10 | NUR ---
RECEIVED PT ON BED, AAOX4, ABLE TO MAKE NEEDS KNOWN, VITAL SIGNS STABLE, DENIES ANY PAIN, FERRLECIT INFUSING WELL AT THIS TIME VIA RT FEMORAL CENTRAL LINE, DRESSING DRY AND INTACT, PLAN OF CARE DISCUSSED, SAFETY MEASURES IN PLACE, SIDE RAILS UP AND BED ALARM ON, CALL LIGHT WITHIN REACH.
--- NOTE | 2018-12-04 19:40 | NUR ---
PT VOIDED AND BM WITH SOFT BROWN STOOL VIA BEDPAN, UNABLE TO COLLECT STOOL OB DUE TO MIXED WITH URINE, CLEANED AND REPOSITIONED.
[2018-12-04 20:16] LABS: BASOPHILS % (AUTO) 0.1 % (0.0-2.0); LYMPHOCYTES # (AUTO) 0.3 K/uL (2.0-11.5); LYMPHOCYTES % (AUTO) 8.7 % (20.5-51.1); MEAN CORPUSCULAR HEMOGLOBIN 26 pg (27-31); MEAN CORPUSCULAR HGB CONC 32 g/dL (33-37); MEAN CORPUSCULAR VOLUME 80.5 fL (80-94); MONOCYTES # (AUTO) 0.2 K/uL (0.8-1.0); NEUTROPHILS # (AUTO) 2.7 K/uL (1.8-7.7); NEUTROPHILS % (AUTO) 84.2 % (42.2-75.2); PLATELET COUNT (AUTO) 149 K/uL (140-450); RED BLOOD CELL COUNT(AUTO) 2.04 MIL/uL (4.20-6.10); RED CELL DISTRIBUTION WIDTH 18.7 % (11.6-13.7); WHITE BLOOD COUNT (AUTO) 3.2 K/uL (4.8-10.8)
[2018-12-04 20:21] LABS: HEMATOCRIT 16.4 % (36-52); HEMOGLOBIN 5.3 g/dL (12.0-18.0)
[2018-12-04] MEDS ORDERED: MAGNESIUM OXIDE 400 MG TAB PO SCH ×2 (20:30)
[2018-12-04] MEDS ORDERED: MAG SULF 2000 MG/WATER PREMIX 50 ML IV SCH (20:30)
[2018-12-04] MEDS: SODIUM PHOS / POTASSIUM PHOS 1 PKT PDR PO SCH (20:31)
--- NOTE | 2018-12-04 21:05 | NUR ---
RECEIVED PATIENT ON 2L NASAL CANNULA, PULSE OX SAT 100%. PATIENT DENIES SOB. NO HHN INDICATED AT THIS TIME. NO RESPIRATORY DISTRESS NOTED AT THIS TIME. WILL CONTINUE TO MONITOR.
--- NOTE | 2018-12-04 22:45 | NUR ---
PT SEEN SLEEPING, AROUSABLE TO VERBAL STIMULI, K RIDER AND MAG RIDER DONE, VITAL SIGNS STABLE, BLOOD TRANSFUSION OF 1 UNIT PRBC STARTED, MONITORED FOR ANY REACTION, VITAL SIGNS CHECKED PER PROTOCOL.
[2018-12-05] VITALS: BP 110/65
--- NOTE | 2018-12-05 | NUR ---
PT SLEEPING, EASILY AROUSABLE TO VERBAL STIMULI, VITAL SIGNS STABLE, BLOOD TRANSFUSION ON-GOING, NO SIGNS OF REACTION NOTED, NO SIGNS OF RESP DISTRESS, CONTINUE TO MONITOR CLOSELY.
--- NOTE | 2018-12-05 01:59 | NUR ---
BLOOD TRANSFUSION DONE, VITAL SIGNS STABLE, NO SIGNS OF REACTION NOTED, DR DAVIS MADE AWARE, PT SLEEPING, NO SIGNS OF DISTRESS, MONITORED CLOSELY.
--- NOTE | 2018-12-05 02:15 | NUR ---
PER DR GREER CBC LAB DRAW AFTER BLOOD TRANSFUSION CAN BE DONE WITH AM LABS, CHARGE NURSE AMBER MADE AWARE.
[2018-12-05 04:00] VITALS: BP 120/76
--- NOTE | 2018-12-05 04:40 | NUR ---
PT AMBULATED TO BR WITH MAX ASSIST, NO BM JUST VOIDED, PT ASSISTED BACK TO BED, CENTRAL LINE DRESSING ACCIDENTALLY GOT WET, NEW DRESSING APPLIED, DATED AND TIMED, IVF INFUSING WELL AT 10ML/H, MONITORED CLOSELY.
[2018-12-05] MEDS: DEXT 5% / NACL 0.9% 500 ML IV SCH (05:05)
--- NOTE | 2018-12-05 05:15 | NUR ---
DUE AM LABS DRAWN VIA BLUE PORT OF CENTRAL LINE WITH GOOD BLOOD RETURN, ALL PORTS FLUSHES WELL, IVF INFUSING WELL, PT WENT BACK TO SLEEP, DENIES PAIN AND NO SOB NOTED, MAINTAINED ON NPO EXCEPT MEDS, MONITORED CLOSELY.
[2018-12-05 06:19] LABS: ANION GAP 11.8 (8-16); CARBON DIOXIDE 22.9 mmol/L (21-32); CHLORIDE 108 mmol/L (98-107); CREATININE 1.4 mg/dL (0.7-1.3); GLUCOSE 94 mg/dL (74-106); POTASSIUM 3.7 mmol/L (3.5-5.1); SODIUM SERUM 139 mmol/L (136-145); UREA NITROGEN, BLOOD 13 mg/dL (7-18)
[2018-12-05 06:25] LABS: MAGNESIUM 2.1 mg/dL (1.8-2.4); PHOSPHORUS 2.2 mg/dL (2.5-4.9)
[2018-12-05 07:01] LABS: BASOPHILS % (AUTO) 0.3 % (0.0-2.0); EOSINOPHILS % (AUTO) 0.1 % (0.0-4.0); LYMPHOCYTES # (AUTO) 0.6 K/uL (2.0-11.5); LYMPHOCYTES % (AUTO) 12.2 % (20.5-51.1); MEAN CORPUSCULAR HEMOGLOBIN 27 pg (27-31); MEAN CORPUSCULAR HGB CONC 33 g/dL (33-37); MEAN CORPUSCULAR VOLUME 82.6 fL (80-94); MONOCYTES # (AUTO) 0.5 K/uL (0.8-1.0); MONOCYTES % (AUTO) 9.6 % (1.7-9.3); NEUTROPHILS # (AUTO) 3.8 K/uL (1.8-7.7); NEUTROPHILS % (AUTO) 77.8 % (42.2-75.2); PLATELET COUNT (AUTO) 137 K/uL (140-450); RED BLOOD CELL COUNT(AUTO) 2.39 MIL/uL (4.20-6.10); RED CELL DISTRIBUTION WIDTH 18.3 % (11.6-13.7); WHITE BLOOD COUNT (AUTO) 4.9 K/uL (4.8-10.8)
[2018-12-05 07:10] LABS: HEMATOCRIT 19.7 % (36-52); HEMOGLOBIN 6.4 g/dL (12.0-18.0)
--- NOTE | 2018-12-05 07:25 | NUR ---
PT EASILY AROUSABLE, NO DISTRESS NOTED, REPORT GIVEN TO RN WESTON FOR CONTINUITY OF CARE.
--- NOTE | 2018-12-05 07:29 | NUR ---
REPORT RECEIVED FROM BOAT LOADER NURSE, PT AWAKE ALERT OX4, RESP EVEN UNLABORED, SKIN WARM DRY COLOR WNL, DENIES SOB, DENIES PAIN, POC REVIEWED, DENIES ANY IMMEDIATE NEEDS, ALL SAFETY MEASURES IN PLACE, WILL CONTINUE TO MONITOR
[2018-12-05 08:00] VITALS: BP 120/79
[2018-12-05] MEDS: SODIUM PHOS / POTASSIUM PHOS 1 PKT PDR PO SCH ×3 (09:00→17:55)
[2018-12-05] MEDS: LACTOBACILLUS RHAMNOSUS GG 1 EACH CAP PO SCH (09:01)
[2018-12-05] MEDS: HYDROcodone/APAP 10/325 MG 1 TAB TAB PO PRN ×2 (09:01→14:38)
[2018-12-05] MEDS: GABAPENTIN 300 MG CAP PO SCH ×2 (09:01→20:43)
[2018-12-05] MEDS: LEVOFLOXACIN 250 MG/D5 PREMIX 50 ML IV SCH (09:01)
[2018-12-05] MEDS: FUROSEMIDE 20 MG TAB PO SCH ×3 (09:01→22:00)
--- NOTE | 2018-12-05 09:07 | NUR ---
AM MEDS GIVEN, PT ARMANDO PO WELL, NORCO GIVEN FOR BACK PAIN, PT DENIES OTHER NEEDS, PT REEDUCATED ON NPO STATUS. PT VERBALIZED FULL UNDERSTANDING
[2018-12-05] MEDS: ROFLUMILAST 250 MCG PO SCH (09:26)
[2018-12-05] MEDS: DOLUTEGRAVIR PO SCH (09:26)
[2018-12-05] MEDS: LAMIVUDINE PO SCH (09:26)
[2018-12-05] MEDS: ABACAVIR PO SCH (09:26)
--- NOTE | 2018-12-05 09:28 | NUR ---
TRIUMEQ AND ROFLUMILAST GIVEN.
--- NOTE | 2018-12-05 10:14 | NUR ---
NIECE ON THE PHONE, PT GAVE VERBAL OK TO GIVE INFORMATION TO MELLY (NIECE), POC UPDATED.
[2018-12-05 12:00] VITALS: BP 108/71
--- NOTE | 2018-12-05 12:05 | NUR ---
PT SITTING UP IN BED IN NO ACUTE DISTRESS, NO IMMEDIATE NEEDS AT THIS TIME, WILL CONTINUE TO MONITOR.
[2018-12-05] MEDS ORDERED: ACETAMINOPHEN 325 MG TAB PO SCH ×2 (14:00→14:02)
[2018-12-05] MEDS: ACETAMINOPHEN 325 MG TAB PO SCH ×2 (14:39→22:00)
[2018-12-05] MEDS: SODIUM FERRIC GLUCONATE 125 MG in NACL 0.9% 100 ML IV SCH (14:39)
[2018-12-05 15:07] LABS: FOLIC ACID 14.9 ng/mL (>3.0)
--- NOTE | 2018-12-05 15:45 | NUR ---
BLOOD TRANSFUSION STARTED, VITALS STABLE, PT AWARE OF S/S OF REACTIONS TO REPORT, WILL CLOSELY MONITOR.
[2018-12-05 16:00] VITALS: BP 125/75
--- NOTE | 2018-12-05 16:00 | NUR ---
NO S/S OF REACTIONS NOTED AT THIS TIME.
[2018-12-05 17:52] LABS: T4 (THYROXINE) 15.1 ug/dL (4.5 - 12.0)
[2018-12-05] MEDS: LACTULOSE 20 GM/30 ML UDC PO SCH (17:54)
[2018-12-05] MEDS: SENNA 8.6 MG TAB PO SCH ×2 (17:55→20:43)
--- NOTE | 2018-12-05 18:00 | NUR ---
PT DRINKING BOWEL PREP. SITTING UP, DENIES PAIN, BLOOD TRANSFUSION ONGOING. NO S/S REACTIONS
--- NOTE | 2018-12-05 19:15 | NUR ---
BLOOD TRANSFUSION COMPLETED, PT ARMANDO WELL, NO S/S OF REACTION NOTED. VITALS STABLE.
--- NOTE | 2018-12-05 19:25 | NUR ---
REPORT GIVEN TO PRODUCT TRANSFER PUMPER NURSE, PT IN STABLE CONDITION.
--- NOTE | 2018-12-05 19:30 | NUR ---
RECEIVED PT ON BED, AAOX4, VITAL SIGNS STABLE, DENIES ANY PAIN OR SOB, JUST FINISHED BLOOD TRANSFUSION OF 1 UNIT PRBC, NO REACTION NOTED, DR GREER NOTIFIED AND CALLED LAB AND TALKED TO EMMA THAT CBC WILL BE DRAWN AT 2114, IVF INFUSING WELL VIA RT FEMORAL CENTRAL LINE, DRESSING DRY AND INTACT, PLAN OF CARE DISCUSSED WITH PT, FOR COLONOSCOPY TOMORROW, NPO EXCEPT MEDS AFTER MIDNIGHT, SAFETY MEASURES IN PLACE, CALL LIGHT WITHIN REACH.
[2018-12-05 20:00] VITALS: BP 118/74
--- NOTE | 2018-12-05 20:10 | NUR ---
PT ASSISTED TO BEDSIDE COMMODE BUT UNABLE TO MAKE IT, BM WITH LARGE BROWNISH LOOSE STOOL WITH SOLID PIECES ON THE FLOOR AND BED, PT CLEANED, GOWN AND BED LINEN CHANGED, ALL NEEDS ATTENDED.
[2018-12-05] MEDS: SUPREP BOWEL PREP KIT 354 ML SOLN.RECON PO SCH (20:43)
[2018-12-05 21:33] LABS: BASOPHILS % (AUTO) 0.1 % (0.0-2.0); HEMATOCRIT 23.3 % (36-52); HEMOGLOBIN 7.5 g/dL (12.0-18.0); LYMPHOCYTES # (AUTO) 0.1 K/uL (2.0-11.5); LYMPHOCYTES % (AUTO) 2.6 % (20.5-51.1); MEAN CORPUSCULAR HGB CONC 32 g/dL (33-37); MONOCYTES # (AUTO) 0.2 K/uL (0.8-1.0); PLATELET COUNT (AUTO) 123 K/uL (140-450); RED BLOOD CELL COUNT(AUTO) 2.84 MIL/uL (4.20-6.10); WHITE BLOOD COUNT (AUTO) 3.5 K/uL (4.8-10.8)
[2018-12-05 21:38] LABS: MEAN CORPUSCULAR HEMOGLOBIN 27 pg (27-31); MEAN CORPUSCULAR VOLUME 82.1 fL (80-94); MONOCYTES % (AUTO) 6.2 % (1.7-9.3); NEUTROPHILS # (AUTO) 3.2 K/uL (1.8-7.7); NEUTROPHILS % (AUTO) 91.1 % (42.2-75.2)
--- NOTE | 2018-12-05 21:40 | NUR ---
RECEIVED PATIENT ON 2L NASAL CANNULA, PULSE OX SAT 94%. PATIENT DENIES SOB. REFUSING NEED FOR PRN BREATHING TREATMENT AT THIS TIME. DEEP BREATH EXERCISES AND GOOD COUGH TECHNIQUE EXPLAINED TO PATIENT. NO RESPIRATORY DISTRESS NOTED AT THIS TIME. WILL CONTINUE TO MONITOR.
--- NOTE | 2018-12-05 21:56 | NUR ---
LATEST RESULT OF HGB-7.5, HCT-23.3, DR ALEXANDER MADE AWARE, STATED NO NEED TO GIVE THE SECOND PRBC FOR TONIGHT, PT AWAKE, DRINKING THE BOWEL PREP, TOLERATING WELL, NO N/V NOTED, MONITORED CLOSELY.
--- NOTE | 2018-12-05 23:05 | NUR ---
ASSISTED TO BEDSIDE COMMODE, BM WITH 1200ML WATERY BROWN STOOL, NO SOLID PIECE NOTED, PT ON HIS LAST BOTTLE OF BOWEL PREP, ENCOURAGE TO FINISHED IT BEFORE MIDNIGHT, VERBALIZED UNDERSTANDING, MONITORED CLOSELY.
[2018-12-06] VITALS: BP 134/81
--- NOTE | 2018-12-06 01:27 | NUR ---
PT ASSISTED TO BEDSIDE COMMODE, VOIDED FREELY AND BM WITH VERY LARGE WATERY BROWN STOOL NOTED, MONITORED CLOSELY.
[2018-12-06] MEDS: HYDROcodone/APAP 10/325 MG 1 TAB TAB PO PRN ×2 (03:45→10:43)
--- NOTE | 2018-12-06 03:51 | NUR ---
PT ASSISTED TO BEDSIDE COMMODE, BM WITH LARGE BROWN CLEAR LIQUID STOOL, ASSISTED BACK TO BED, RT FEMORAL CENTRAL LINE OOZING WITH CLEAR FLUID MIXED WITH BLOOD, NEW DRESSING APPLIED, DR GREER MADE AWARE, WILL CHECK THE PT, MEDICATED WITH NORCO FOR PAIN, MONITORED CLOSELY.
[2018-12-06 04:00] VITALS: BP 127/79
--- NOTE | 2018-12-06 04:19 | NUR ---
PT AWAKE, NO SIGNS OF DISTRESS, BEDSIDE REPORT GIVEN TO RN NAY FOR CONTINUITY OF CARE.
--- NOTE | 2018-12-06 04:20 | NUR ---
RECEIVED PT FROM CORETTA ROSALES PT IS AAOX4, ON TELEMETRY SR, LEFT EYE BLIND CENTRAL LINE ON RT GROIN PATENT PT ON COLON PREPARATION FOR COLONOSCOPY THIS AFTERNOON LIQUID STOOL BROWNISH COLOR AND DENIES ANY PAIN AT THIS TIME INITIAL ASSESSMENT DONE
[2018-12-06] MEDS: DEXT 5% / NACL 0.9% 500 ML IV SCH (05:05)
--- NOTE | 2018-12-06 05:38 | NUR ---
PT RESTING ON BED DENIES ANY DISTRESS OR DISDOMFORT;, SPONGE BATH GIVEN LINEN CHANGED, ON TELEMETRY SR
--- NOTE | 2018-12-06 06:52 | NUR ---
PT ON PREPARATION FOR COLONOSCOPY THIS AFTERNO;ON , AND PT IS NOT CLEAR YET DR SOTO RESIDENT IS AWARE AND DR PETERS WAS NOTIFY CENTRL LINE ON RT GROIN CONDITION.
--- NOTE | 2018-12-06 07:28 | NUR ---
RECEIVED BEDSIDE REPORT FROM RENT AND MISCELLANEOUS REMITTANCE CLERK NURSE. PATIENT IS AWAKE AND RESTING ON BED. PATIENT IS AAOX4. DENIES PAIN AND SOB AT THIS TIME. RESPIRATION EVEN AND UNLABORED ON 2LPM VIA NC. NO SIGNS OF DISTRESS NOTED. PICC LINE ON R GROIN, CLEAN AND DRY. SKIN INTACT AND CLEAN. PATIENT IS CONTINENT AND ABLE TO AMBULATE WITH STANDBY ASSIST. BEDSIDE COMMODE IS IN PLACE. FALL RISK PROTOCOL INITIALED AND BED ALARM ACTIVATED. INSTRUCTED PATIENT TO USE THE CALL LIGHT FOR ANY ASSISTANCE AND PATIENT VERBALIZED OK. DISCUSSED PLAN OF CARE WITH PATIENT AND PATIENT VERBALIZED UNDERSTANDING. PATIENT IS ON NPO AND SIGN POSTED. PATIENT IS PREPARING FOR COLONOSCOPY. INSTRUCTED PATIENT TO USE THE CALL LIGHT FOR ANY ASSISTANCE AND PATIENT WAS AWARE. BED IN LOW POSITION AND CALL LIGHT WITHIN REACH.
[2018-12-06 08:00] VITALS: BP 121/70
[2018-12-06 08:02] LABS: BASOPHILS % (AUTO) 0.1 % (0.0-2.0); EOSINOPHILS % (AUTO) 0.2 % (0.0-4.0); HEMATOCRIT 22.1 % (36-52); HEMOGLOBIN 7.2 g/dL (12.0-18.0); LYMPHOCYTES # (AUTO) 0.3 K/uL (2.0-11.5); LYMPHOCYTES % (AUTO) 7.5 % (20.5-51.1); MEAN CORPUSCULAR HEMOGLOBIN 27 pg (27-31); MEAN CORPUSCULAR HGB CONC 33 g/dL (33-37); MEAN CORPUSCULAR VOLUME 81.7 fL (80-94); MONOCYTES # (AUTO) 0.3 K/uL (0.8-1.0); MONOCYTES % (AUTO) 9.6 % (1.7-9.3); NEUTROPHILS # (AUTO) 2.7 K/uL (1.8-7.7); NEUTROPHILS % (AUTO) 82.6 % (42.2-75.2); PLATELET COUNT (AUTO) 117 K/uL (140-450); RED CELL DISTRIBUTION WIDTH 18.4 % (11.6-13.7); WHITE BLOOD COUNT (AUTO) 3.3 K/uL (4.8-10.8)
[2018-12-06 08:40] LABS: ANION GAP 11.9 (8-16); CHLORIDE 111 mmol/L (98-107); CREATININE 1.2 mg/dL (0.7-1.3); GLUCOSE 93 mg/dL (74-106); SODIUM SERUM 145 mmol/L (136-145); UREA NITROGEN, BLOOD 9 mg/dL (7-18)
[2018-12-06 08:42] LABS: POTASSIUM 2.9 mmol/L (3.5-5.1)
[2018-12-06 08:50] LABS: PHOSPHORUS 2.4 mg/dL (2.5-4.9)
--- NOTE | 2018-12-06 08:50 | NUR ---
RECEIVED CRITICAL LAB FOR POTASSIUM 2.[address] DELACRUZ. DR DELACRUZ WAS AWARE OF POTASSIUM VALUE.
[2018-12-06] MEDS: SUPREP BOWEL PREP KIT 354 ML SOLN.RECON PO SCH (09:00)
--- NOTE | 2018-12-06 09:15 | NUR ---
PATIENT IS RESTING ON BED AT THIS TIME. DENIES PAIN AND SOB. NO SIGNS OF DISTRESS NOTED. SAFETY MEASURES IN PLACE.
[2018-12-06] MEDS ORDERED: POTASSIUM CHLORIDE 40 MEQ, LIDOCAINE 1% 25 MG in NACL 0.9% 250 ML IV SCH (09:30)
[2018-12-06] MEDS: LACTOBACILLUS RHAMNOSUS GG 1 EACH CAP PO SCH (10:17)
[2018-12-06] MEDS: GABAPENTIN 300 MG CAP PO SCH ×2 (10:18→19:56)
[2018-12-06] MEDS: FUROSEMIDE 20 MG TAB PO SCH ×2 (10:18→17:36)
[2018-12-06] MEDS: LACTULOSE 20 GM/30 ML UDC PO SCH ×2 (10:18→12:42)
[2018-12-06] MEDS: SODIUM PHOS / POTASSIUM PHOS 1 PKT PDR PO SCH ×3 (10:18→17:36)
[2018-12-06] MEDS: LEVOFLOXACIN 250 MG/D5 PREMIX 50 ML IV SCH (10:19)
[2018-12-06] MEDS: ROFLUMILAST 250 MCG PO SCH (10:23)
[2018-12-06] MEDS: SENNA 8.6 MG TAB PO SCH ×2 (10:23→12:41)
[2018-12-06] MEDS: DOLUTEGRAVIR PO SCH (10:23)
[2018-12-06] MEDS: ABACAVIR PO SCH (10:23)
[2018-12-06] MEDS: LAMIVUDINE PO SCH (10:23)
--- NOTE | 2018-12-06 10:43 | NUR ---
PATIENT COMPLAINED 8/10 BACK PAIN, ADMINISTERED PRN PAIN MED. PATIENT TOLERATED WELL. DR DELACRUZ IS ASSESSING PATIENT AT BEDSIDE. NO SIGNS OF DISTRESS NOTED. SAFETY MEASURES IN PLACE. INSTRUCTED PATIENT TO USE THE CALL LIGHT FOR ANY ASSISTANCE AND PATIENT WAS AWARE.
--- NOTE | 2018-12-06 10:50 | NUR ---
PAGED DR ROGEL ABOUT THE BOWEL PREP KIT TREATMENT. PENDING SYSTEM MANAGER BACK FROM DR ROGEL.
--- NOTE | 2018-12-06 11:45 | NUR ---
PATIENT IS TALKING TO PHYSICAL THERAPIST AT BEDSIDE. NO SIGNS OF DISTRESS NOTED. SAFETY MEASURES IN PLACE. TELE MONITOR ATTACHED.
[2018-12-06 12:00] VITALS: BP 111/62
--- NOTE | 2018-12-06 12:15 | NUR ---
RECEIVED BLOOD CULTURE RESULT FROM LAB THAT PATIENT IS GRAM POSITIVE RODS. NOTIFIED DR DELACRUZ AND DR DELACRUZ WAS AWARE OF RESULT.
--- NOTE | 2018-12-06 12:55 | NUR ---
PATIENT IS OFF UNIT TO THE OR FOR COLONOSCOPY ACCOMPANIED BY OR NURSE.
[2018-12-06] MEDS ORDERED: fentaNYL 0.05 MG/ML VIAL ONE ×2 (13:15)
[2018-12-06] MEDS ORDERED: MIDAZOLAM 2 MG/2 ML VIAL ONE (13:16)
--- NOTE | 2018-12-06 13:25 | NUR ---
P.T. NOTES RECEIVED P.T. KELSEY ORDER, Pt ALERT ORIENTED x3, SPEAKS YAKUT, O2 N/C 2L, BSC IN ROOM, DECLINED TO PARTICIPATE W/ P.T. TODAY, Pt STATES HE JUST WANTS TO REST, HAS COLONOSCOPY TODAY, EXPLAINED PURPOSE/BENEFITS OF THERAPY, Pt STILL DECLINED, STATES HE HAS BEEN GETTING UP W/ NURSE STAFF AD REY TO USE BSC; REPORTS HE LIVES W/ BROTHER & [facility], AMBULATORY W/ WALKER AT HOME, OCCASIONALLY DRIVES LOCALLY, USES HOME O2; WC=482/62, HR=61, O2 SAT 6A=503%, CALL GARY, PHONE, CELLPHONE, TABLE IN REACH, HEELS OFF LOADED, BED ALARM ON; APPRECIATIVE; FOLLOW UP WHEN MORE PARTICIPATIVE, MD RESIDENT AWARE. Addendum: 12/06/18 at 1332 by Sabrina Negro PT Hgb=7.2; POTASSIUM=2.9
--- NOTE | 2018-12-06 15:05 | NUR ---
PATIENT CAME BACK ON UNIT VIA AISHA ACCOMPANIED BY KRISTI CORONEL RN. PATIENT IS AWAKE AND RESTING AT THIS KHOA. VITAL SIGNS TAKEN; TEMP 97.5, BP 100/64, PULSE 74, SPO2 100% VIA 2LPM NC, RR 18, DENIES PAIN. NO SIGNS OF DISTRESS NOTED. TELE MONITOR ATTACHED. BED ALARM ACTIVATED. BED IN LOW POSITION AND CALL LIGHT WITHIN REACH.
[2018-12-06] MEDS ORDERED: fentaNYL 0.05 MG/ML VIAL IVP ONE (15:10)
[2018-12-06] MEDS ORDERED: MIDAZOLAM 2 MG/2 ML VIAL IVP ONE (15:10)
[2018-12-06 16:00] VITALS: BP 104/63
--- NOTE | 2018-12-06 16:25 | NUR ---
PATIENT IS TALKING TO BROTHER NOE AND NIECES AT BEDSIDE. NO SIGNS OF DISTRESS NOTED. SAFETY MEASURES IN PLACE. BED IN LOW POSITION AND CALL LIGHT WITHIN REACH.
[2018-12-06 16:37] LABS: BASOPHILS % (AUTO) 0.1 % (0.0-2.0); EOSINOPHILS % (AUTO) 0.2 % (0.0-4.0); HEMATOCRIT 23.3 % (36-52); HEMOGLOBIN 7.6 g/dL (12.0-18.0); LYMPHOCYTES # (AUTO) 0.3 K/uL (2.0-11.5); LYMPHOCYTES % (AUTO) 8.1 % (20.5-51.1); MEAN CORPUSCULAR HEMOGLOBIN 27 pg (27-31); MEAN CORPUSCULAR HGB CONC 33 g/dL (33-37); MEAN CORPUSCULAR VOLUME 82.8 fL (80-94); MONOCYTES # (AUTO) 0.5 K/uL (0.8-1.0); NEUTROPHILS # (AUTO) 3.2 K/uL (1.8-7.7); NEUTROPHILS % (AUTO) 79.6 % (42.2-75.2); PLATELET COUNT (AUTO) 110 K/uL (140-450); RED BLOOD CELL COUNT(AUTO) 2.81 MIL/uL (4.20-6.10); RED CELL DISTRIBUTION WIDTH 18.7 % (11.6-13.7)
--- NOTE | 2018-12-06 17:25 | NUR ---
RECEIVED A CRITICAL LAB FROM LAB FOR TROPONIN 0.[address]. DR ROBERSON WAS AWARE.
[2018-12-06] MEDS: FERROUS SULFATE 325 MG TABEC PO SCH (17:36)
--- NOTE | 2018-12-06 17:39 | NUR ---
ADMINISTERED MEDS PER MD ORDER, PATIENT TOLERATED WELL. PATIENT DENIES PAIN AND SOB. NO SIGNS OF DISTRESS NOTED. SAFETY MEASURES IN PLACE. TELE MONITOR ATTACHED.
--- NOTE | 2018-12-06 19:27 | NUR ---
ENDORSED PATIENT AT BEDSIDE TO MOBILE [employer]LECTRON[employer] INSTALLER NURSE FOR CONTINUITY OF CARE. PATIENT IS IN STABLE CONDITION.
--- NOTE | 2018-12-06 19:30 | NUR ---
RECEIVED BEDSIDE REPORT FROM DAY SHIFT RN, PATIENT IN BED, ON 2 L NC. NO SIGNS OF DISTRESS, RIGHT FEMORAL CENTRAL LINE, TRIPLE LUMEN, DRESSING INTACT. NEEDS ONE PERSON ASSISTANCE TO BEDSIDE COMMODE, PATIENT HAD 1 LARGE BM. V/S STABLE, CALL LIGHT WITHIN REACH, WILL CONTINUE TO MONITOR.
[2018-12-06] MEDS: POTASSIUM CHLORIDE 20% 40 MEQ/15 ML UDC GT SCH (19:57)
--- NOTE | 2018-12-06 19:57 | NUR ---
V/S TAKEN ALL WITHIN BASELINE, DUE MEDICATIONS GIVEN, EDUCATION PROVIDED
[2018-12-06 20:00] VITALS: BP 117/75
--- NOTE | 2018-12-06 22:00 | NUR ---
PATIENT WATCHING TV IN BED, NO SIGNS OF DISTRESS.
[2018-12-07] VITALS: BP 110/80
--- NOTE | 2018-12-07 | NUR ---
V/S STABLE, CALL LIGHT WITHIN REACH, BED ALARM ON
--- NOTE | 2018-12-07 01:20 | NUR ---
PATIENT SLEEPING IN BED, CALL LIGHT WITHIN REACH WILL CONTINUE TO MONITOR
[2018-12-07 04:00] VITALS: BP 122/74
--- NOTE | 2018-12-07 04:10 | NUR ---
V/S STABLE, CLEANED RIGHT FEMORAL CENTRAL LINE WITH CHLORHEXIDINE WIPES
--- NOTE | 2018-12-07 05:52 | NUR ---
PATIENT WATCHING TV IN BED, CALL LIGHT WITHIN REACH
--- NOTE | 2018-12-07 07:31 | NUR ---
ENDORSED PATIENT TO DAY SHIFT NURSE, PATIENT STABLE.
--- NOTE | 2018-12-07 07:32 | NUR ---
RECEIVED BEDSIDE REPORT FROM NIGHT NURSE. PATIENT IS CURRENTLY RESTING IN BED WITH NO SIGNS OF DISTRESS BREATHING SYMMETRICAL AND UNLABORED. PATIENT HAS A RIGHT THIGH TRIPLE LUMEN CENTRAL LINE THAT IS ASYMPTOMATIC AND PATENT. PATIENT HAS +1 PITTING EDEMA BLE. PT IS LEFT EYE BLIND, AOX4 WITH NO COMPLAINTS OF PAIN OR DISCOMFORT. ALL SAFETY MEASURES ARE IN PLACE WITH CALL LIGHT WITHIN REACH. POC DISCUSSED WITH PATIENT.
[2018-12-07 07:56] LABS: BASOPHILS % (AUTO) 0.1 % (0.0-2.0); EOSINOPHILS % (AUTO) 0.4 % (0.0-4.0); HEMATOCRIT 21.9 % (36-52); HEMOGLOBIN 7.2 g/dL (12.0-18.0); LYMPHOCYTES # (AUTO) 0.6 K/uL (2.0-11.5); LYMPHOCYTES % (AUTO) 12.2 % (20.5-51.1); MEAN CORPUSCULAR HEMOGLOBIN 27 pg (27-31); MEAN CORPUSCULAR HGB CONC 33 g/dL (33-37); MEAN CORPUSCULAR VOLUME 82.8 fL (80-94); MONOCYTES # (AUTO) 0.4 K/uL (0.8-1.0); NEUTROPHILS # (AUTO) 3.7 K/uL (1.8-7.7); NEUTROPHILS % (AUTO) 79.3 % (42.2-75.2); PLATELET COUNT (AUTO) 109 K/uL (140-450); RED BLOOD CELL COUNT(AUTO) 2.65 MIL/uL (4.20-6.10); RED CELL DISTRIBUTION WIDTH 18.5 % (11.6-13.7); WHITE BLOOD COUNT (AUTO) 4.7 K/uL (4.8-10.8)
[2018-12-07 08:00] VITALS: BP 121/78
[2018-12-07] MEDS: FERROUS SULFATE 325 MG TABEC PO SCH ×2 (08:14→16:42)
[2018-12-07] MEDS: LACTULOSE 20 GM/30 ML UDC PO SCH (08:15)
[2018-12-07] MEDS: FUROSEMIDE 20 MG TAB PO SCH ×2 (08:15→16:42)
[2018-12-07] MEDS: LACTOBACILLUS RHAMNOSUS GG 1 EACH CAP PO SCH (08:15)
[2018-12-07] MEDS: SODIUM PHOS / POTASSIUM PHOS 1 PKT PDR PO SCH (08:15)
[2018-12-07] MEDS: POTASSIUM CHLORIDE 20% 40 MEQ/15 ML UDC GT SCH ×2 (08:16→21:00)
[2018-12-07] MEDS: GABAPENTIN 300 MG CAP PO SCH ×2 (08:16→21:00)
[2018-12-07] MEDS: ROFLUMILAST 250 MCG PO SCH (08:20)
--- NOTE | 2018-12-07 08:20 | NUR ---
PATIENT HAS NO REQUESTS AT THIS TIME AND NO SIGNS OF DISTRESS WITH BREATHING UNLABORED. MEDICATION ADMINISTERED. PT SITTING UP IN BED EATING BREAKFAST.
[2018-12-07] MEDS: ABACAVIR PO SCH (08:21)
[2018-12-07] MEDS: DOLUTEGRAVIR PO SCH (08:21)
[2018-12-07] MEDS: LAMIVUDINE PO SCH (08:21)
[2018-12-07 08:34] LABS: ANION GAP 9.7 (8-16); CARBON DIOXIDE 24.3 mmol/L (21-32); CHLORIDE 110 mmol/L (98-107); CREATININE 1.2 mg/dL (0.7-1.3); GLUCOSE 86 mg/dL (74-106); SODIUM SERUM 141 mmol/L (136-145); UREA NITROGEN, BLOOD 8 mg/dL (7-18)
[2018-12-07 08:43] LABS: MAGNESIUM 1.6 mg/dL (1.8-2.4); PHOSPHORUS 2.5 mg/dL (2.5-4.9)
--- NOTE | 2018-12-07 09:36 | NUR ---
PATIENT IS REQUESTING IF HE CAN HAVE NORCO DUE TO THAT BEING A HOME MEDICATION ACCORDING TO PATIENT. INFORMED DR. PRADHAN OF THIS, WILL AWAIT FURTHER ORDERS.
[2018-12-07] MEDS: HYDROcodone/APAP 10/325 MG 1 TAB TAB PO PRN ×2 (10:32→16:46)
--- NOTE | 2018-12-07 10:36 | NUR ---
ADMINISTERED MEDICATIONS AND GOT PATIENT ICE AND HANDED HIM HIS BIBLE PER HIS REQUEST. PT HAS NO OTHER REQUESTS AT THIS TIME AND IS RESTING IN BED WITH NO OBVIOUS SIGNS OF DISTRESS.
[2018-12-07] MEDS ORDERED: MAGNESIUM OXIDE 400 MG TAB PO SCH (11:00)
[2018-12-07] MEDS ORDERED: POTASSIUM CHLORIDE 40 MEQ, LIDOCAINE MPF 1% - 5 mL VIAL 25 MG in NACL 0.9% 250 ML IV SCH (11:00)
[2018-12-07 12:00] VITALS: BP 121/78
--- NOTE | 2018-12-07 12:25 | NUR ---
PT RESTING IN BED WITH HIS BIBLE, NO REQUESTS OR COMPLAINTS AT THIS TIME.
--- NOTE | 2018-12-07 14:15 | NUR ---
PT RESTING IN BED WITH NO REQUESTS AT THIS TIME AND NO SIGNS OF DISTRESS.
[2018-12-07 16:00] VITALS: BP 130/80
--- NOTE | 2018-12-07 16:48 | NUR ---
ADMINISTERED MEDICATIONS AND ASSISTED PATIENT TO COMMODE AT BEDSIDE. PT HAS NO OTHER REQUESTS AT THIS TIME.
--- NOTE | 2018-12-07 17:30 | NUR ---
PATIENT IS SITTING UP IN BED RESTING WITH NO OBVIOUS SIGNS OF DISTRESS.
--- NOTE | 2018-12-07 18:43 | NUR ---
CLEANSED TRIPLE LUMEN CENTRAL CATHETER LINES AND SURROUNDING SKIN WITH CHLORHEXIDINE WIPES FOR CENTRAL CATHETER.
--- NOTE | 2018-12-07 19:05 | NUR ---
GAVE BEDSIDE REPORT, PT IN STABLE CONDITION.
--- NOTE | 2018-12-07 19:30 | NUR ---
RECEIVED BEDSIDE REPORT FROM DAY SHIFT RN, PATIENT IN BED WATCHING TV, ON RA, RT AT BEDSIDE O2SAT STABLE. NO SIGNS OF DISTRESS, RIGHT FEMORAL CENTRAL LINE IN PLACE, TRIPLE LUMEN, DRESSING INTACT, SL. NEEDS ONE PERSON ASSISTANCE TO BEDSIDE COMMODE. PATIENT DENIES PAIN. V/S STABLE, CALL LIGHT WITHIN REACH, WILL CONTINUE TO MONITOR.
[2018-12-07 20:00] VITALS: BP 136/89
--- NOTE | 2018-12-07 20:00 | NUR ---
CLEANED CENTRAL LINE, DRESSING INTACT, EDUCATION PROVIDED.
--- NOTE | 2018-12-07 21:00 | NUR ---
DUE MEDICATIONS GIVEN, PATIENT TOLERATED WELL, EDUCATION PROVIDED, BED ALARM ON, CALL LIGHT WITHIN REACH.
--- NOTE | 2018-12-07 23:00 | NUR ---
PATIENT RESTING IN BED, CALL LIGHT WITHIN REACH, WILL CONTINUE TO MONITOR
[2018-12-08] VITALS: BP 129/85
--- NOTE | 2018-12-08 | NUR ---
V/S TAKEN ALL WITHIN BASELINE, PATIENT DENIES PAIN AT THIS TIME.
--- NOTE | 2018-12-08 01:40 | NUR ---
PATIENT SLEEPING. BED IN LOW POSITION, SIDE RAILS ARE UP, CALL LIGHT WITHIN REACH. NO SIGNS OF DISTRESS AT THIS TIME.
[2018-12-08 04:00] VITALS: BP 133/75
--- NOTE | 2018-12-08 04:05 | NUR ---
PATIENT LYING IN BED, SLEEPING. RE-CHECKED VS. DENIES PAIN AT THIS TIME. WILL CONTINUE TO MONITOR.
--- NOTE | 2018-12-08 05:04 | NUR ---
PATIENT LYING IN BED WATCHING TV. NO SIGNS OF DISTRESS. WILL CONTINUE TO MONITOR PATIENT.
--- NOTE | 2018-12-08 05:58 | NUR ---
PATIENT LYING IN BED, SLEEPING. NO SIGNS OF DISTRESS. BED IN LOW POSITION, SIDE RAILS ARE UP, AND CALL LIGHT WITHIN REACH.
--- NOTE | 2018-12-08 07:25 | NUR ---
ENDORSED PATIENT TO DAY SHIFT NURSE FOR CONTINUITY OF CARE. PATIENT SITTING UP IN BED, COMPLAINS OF BACK PAIN, ON ROOM AIR, AND IN STABLE CONDITION.
--- NOTE | 2018-12-08 07:26 | NUR ---
RECEIVED BEDSIDE REPORT FROM NIGHT NURSE. PATIENT IS SITTING UP IN BED STATING THAT HIS BACK IS BOTHERING HIM, ASSESSED BACK WITH NO VISUAL IMPAIRMENTS, HE STATES IT IS JUST HIS CHRONIC PAIN AND HE HATES PAIN MEDICATION EACH MORNING. INFORMED HIM I WILL BRING THAT TO HIM. PT IS ON ROOM AIR BREATHING UNLABORED WITH NO OBVIOUS SIGNS OF ACUTE DISTRESS. ALL SAFETY MEASURES IN PLACE AND CALL LIGHT WITHIN REACH. PATIENT HAS RIGHT THIGH TRIPLE LUMEN CENTRAL CATHETER PATENT AND ASYMPTOMATIC. PATIENT IS AOX4.
[2018-12-08 07:45] LABS: BASOPHILS % (AUTO) 0.1 % (0.0-2.0); EOSINOPHILS # (AUTO) 0.1 K/uL (0-0.4); EOSINOPHILS % (AUTO) 1.5 % (0.0-4.0); HEMATOCRIT 22.5 % (36-52); HEMOGLOBIN 7.3 g/dL (12.0-18.0); LYMPHOCYTES # (AUTO) 0.8 K/uL (2.0-11.5); LYMPHOCYTES % (AUTO) 21.1 % (20.5-51.1); MEAN CORPUSCULAR HEMOGLOBIN 27 pg (27-31); MEAN CORPUSCULAR HGB CONC 32 g/dL (33-37); MEAN CORPUSCULAR VOLUME 83.9 fL (80-94); MONOCYTES # (AUTO) 0.3 K/uL (0.8-1.0); MONOCYTES % (AUTO) 7.5 % (1.7-9.3); NEUTROPHILS # (AUTO) 2.8 K/uL (1.8-7.7); NEUTROPHILS % (AUTO) 69.8 % (42.2-75.2); PLATELET COUNT (AUTO) 103 K/uL (140-450); RED BLOOD CELL COUNT(AUTO) 2.69 MIL/uL (4.20-6.10); RED CELL DISTRIBUTION WIDTH 19.1 % (11.6-13.7)
[2018-12-08 08:00] VITALS: BP 135/83
[2018-12-08 08:05] LABS: ANION GAP 9.6 (8-16); CARBON DIOXIDE 24.9 mmol/L (21-32); CHLORIDE 109 mmol/L (98-107); CREATININE 1.1 mg/dL (0.7-1.3); GLUCOSE 79 mg/dL (74-106); POTASSIUM 3.5 mmol/L (3.5-5.1); SODIUM SERUM 140 mmol/L (136-145); UREA NITROGEN, BLOOD 5 mg/dL (7-18)
[2018-12-08] MEDS: HYDROcodone/APAP 10/325 MG 1 TAB TAB PO PRN ×2 (08:07→14:16)
[2018-12-08] MEDS: POTASSIUM CHLORIDE 20% 40 MEQ/15 ML UDC GT SCH (08:07)
[2018-12-08] MEDS: FERROUS SULFATE 325 MG TABEC PO SCH (08:07)
[2018-12-08] MEDS: LACTOBACILLUS RHAMNOSUS GG 1 EACH CAP PO SCH (08:08)
[2018-12-08] MEDS: LACTULOSE 20 GM/30 ML UDC PO SCH (08:08)
[2018-12-08] MEDS: FUROSEMIDE 20 MG TAB PO SCH (08:08)
[2018-12-08] MEDS: GABAPENTIN 300 MG CAP PO SCH (08:08)
[2018-12-08 08:12] LABS: MAGNESIUM 1.5 mg/dL (1.8-2.4); PHOSPHORUS 2.3 mg/dL (2.5-4.9)
[2018-12-08] MEDS: LAMIVUDINE PO SCH (08:13)
[2018-12-08] MEDS: ABACAVIR PO SCH (08:13)
[2018-12-08] MEDS: DOLUTEGRAVIR PO SCH (08:13)
[2018-12-08] MEDS: ROFLUMILAST 250 MCG PO SCH (08:14)
--- NOTE | 2018-12-08 08:15 | NUR ---
ADMINISTERED MEDICATIONS. ALSO SPOKE TO DR PRADHAN AND CLARIFIED TO GIVE LASIX INFORMING HER OF POTASSIUM LEVELS CURRENTLY. MD ALSO CAME TO BEDSIDE AND STATED PLANS FOR DC TODAY TO HOME HEALTH. PT HAS NO SIGNS OF DISTRESS AT THIS TIME.
[2018-12-08] MEDS ORDERED: MAGNESIUM OXIDE 400 MG TAB PO SCH (09:30)
[2018-12-08] MEDS ORDERED: SODIUM PHOS / POTASSIUM PHOS 1 PKT PDR PO SCH (09:30)
--- NOTE | 2018-12-08 09:56 | NUR ---
ADMINISTERED MEDICATIONS. PT IS SITTING UP IN BED WITH NO SIGNS OF DISTRESS READING BIBLE WITH BREATHING EQUAL AND UNLABORED.
--- NOTE | 2018-12-08 10:25 | NUR ---
PT SITTING UP IN BED RESTING WITH BREATHING UNLABORED AND NO OBVIOUS SIGNS OF DISTRESS.
--- NOTE | 2018-12-08 11:10 | NUR ---
PATIENT SITTING UP IN BED RESTING WITH NO SIGNS OF OBVIOUS DISTRESS, BREATHING UNLABORED ON ROOM AIR.
[2018-12-08 12:00] VITALS: BP 123/81
--- NOTE | 2018-12-08 12:17 | NUR ---
PATIENT IS SITTING UP IN BED EATING LUNCH, NO OBVIOUS SIGNS OF DISTRESS AT THIS TIME.
--- NOTE | 2018-12-08 12:53 | NUR ---
PATIENT IS ASKING ABOUT WHEN HE CAN HAVE HIS NEXT PAIN MEDICATION. INFORMED HIM OF Q6H PRN SCHEDULE AND HE ASKED IF HE CAN'T HAVE IT NOW BECAUSE THE MEDICATION WASN'T GIVEN ON TIME IN THE MORNING. INFORMED HIM THE MEDICATION IS PRN HE HAS PAIN AND NOT SCHEDULED AND THAT THE MEDICATION CAN BE GIVEN AGAIN 6 HOURS AFTER THE PRIOR DOSAGE IF HE HAS PAIN. PT STATES HE IS FINE FOR NOW AND OKAY WITH WAITING AND THAT HIS PAIN IS TOLERABLE FOR NOW.
[2018-12-08] MEDS ORDERED: LEVO500T2 PO (13:25)
[2018-12-08] MEDS ORDERED: LACT10CA1 PO (13:25)
--- NOTE | 2018-12-08 13:57 | NUR ---
ASSISTED PT TO COMMODE, TOLERATED WELL NO DISTRESS.
[2018-12-08] MEDS ORDERED: FURO20TA8 PO (15:00)
--- NOTE | 2018-12-08 15:00 | NUR ---
CONTACTED [facility] #[phone], SPOKE WITH [facility]PPORT [facility], STATED THAT [facility]S CONTRACTED HOME HEALTH COMPANIES AROUND THE AREA WHERE PT RESIDES ARE [facility] AND [facility]. SPOKE WITH GINO PIG CASTING MACHINE OPERATOR FROM [facility] # [phone], SHE STATED THAT MARK WILL GIVE ME A CALL BACK.
--- NOTE | 2018-12-08 15:30 | NUR ---
MARK FROM [employer] CALLED BACK (#[phone]) AND REQUESTED TO FAX PT'S FACE SHEET, H&P AND HOME HEALTH ORDER. MARK STATED THEY WILL GIVE PT A CALL TODAY OR TOMORROW. FORMS FAXED, CONFIRMATION ATTACHED TO PT'S CHART. AL-CONNIE ASSIGNED MADE AWARE.
--- NOTE | 2018-12-08 15:50 | NUR ---
DR PRADHAN REMOVED RIGHT THIGH CENTRAL LINE WITH ASSISTANCE OF DR JOHANSEN. PT TOLERATED WELL WITH NO REPORTED PAIN. PT IS STATING HE IS READY TO LEAVE HE IS JUST WAITING FOR HIS NIECE TO COME GET HIM. DISCHARGE PAPERWORK REVIEWED AND SIGNED BY PATIENT WITH INSTRUCTIONS GIVEN. PT STATES HE HAS NO QUESTIONS. ALL BELONGINGS REVIEWED WITH PATIENT AND HE STATES HE HAS THEM ALL INCLUDING HIS TWO HOME MEDICATIONS HE BROUGHT WITH HIM TO THE HOSPITAL.
--- NOTE | 2018-12-08 16:53 | NUR ---
REMOVED PATIENT TELE MONITOR AND BROUGHT BOX TO [facility] INCLUDING CABLES. PATIENT IS ACCOMPANIED BY HIS NIECE AND DAUGHTER WHO ARE DRIVING HIM HOME. WHEELCHAIRED PATIENT TO THEIR CAR. PATIENT HAS DISCHARGE PAPERWORK WITH HIM AND BOTH OF HIS HOME MEDICATIONS WITH HIM ALONGSIDE ALL BELONGINGS IN PERSONAL BELONGINGS BAG. PATIENT ALSO HAS HIS LEFTOVER JUICE FROM THE DAY AND HAS NO IV LINES LEFT IN. PT REQUESTS ID BAND REMAIN ON BUT REQUESTS ALLERGY AND FALL RISK BAND REMAIN PER HIS REQUEST HE WISHES TO SHOW HIS FRIEND PROOF HE WAS IN THE HOSPITAL PER HIS STATEMENT AND REFUSES HAVING IT REMOVED. ALL PAPERWORK WITH PATIENT AND HE DENIES ANY QUESTIONS. PT IN STABLE CONDITION WITH NO OBVIOUS SIGNS OF DISTRESS, BREATHING UNLABORED AND EQUAL.
== END 2018-12-08 16:53 | disposition home health service (06) | DRG 377 ==
LOC: MED 23:40 → MMU 12-04 04:10
PROVIDERS: ADMIT General Practice; ATTEND General Practice
PROC: 30233N1 Transfusion of Nonautologous Red Blood Cells into Peripheral Vein, Percutaneous Approach (ICD-10-PCS; 2018-12-04)
PROC: 0DJ08ZZ Inspection of Upper Intestinal Tract, Via Natural or Artificial Opening Endoscopic (ICD-10-PCS; principal; 2018-12-04 13:25)
PROC: 0DBH8ZZ Excision of Cecum, Via Natural or Artificial Opening Endoscopic (ICD-10-PCS; 2018-12-06)
DX: K92.2 Gastrointestinal hemorrhage, unspecified (principal); I21.A1 Myocardial infarction type 2; E43 Unspecified severe protein-calorie malnutrition; Q43.8 Other specified congenital malformations of intestine; Q25.0 Patent ductus arteriosus; E87.6 Hypokalemia; B19.20 Unspecified viral hepatitis C without hepatic coma; E88.09 Other disorders of plasma-protein metabolism, not elsewhere classified; H54.8 Legal blindness, as defined in USA; I50.9 Heart failure, unspecified; J43.9 Emphysema, unspecified; K64.8 Other hemorrhoids; N18.9 Chronic kidney disease, unspecified; Z21 Asymptomatic human immunodeficiency virus [HIV] infection status; K42.9 Umbilical hernia without obstruction or gangrene; G89.29 Other chronic pain; M54.9 Dorsalgia, unspecified; E83.39 Other disorders of phosphorus metabolism; I27.20 Pulmonary hypertension, unspecified; K63.89 Other specified diseases of intestine; D12.0 Benign neoplasm of cecum; D50.0 Iron deficiency anemia secondary to blood loss (chronic); E83.42 Hypomagnesemia; Z68.20 Body mass index [BMI] 20.0-20.9, adult; Z87.891 Personal history of nicotine dependence; Z88.0 Allergy status to penicillin; Z79.82 Long term (current) use of aspirin; Z79.899 Other long term (current) drug therapy; Z85.46 Personal history of malignant neoplasm of prostate; Z83.3 Family history of diabetes mellitus; Z71.3 Dietary counseling and surveillance
CPT/HCPCS: 36415; 36568; 71045; 80048; 80053; 80305; 81001; 82150; 82607; 82728; 82746; 83036; 83540; 83605; 83690; 83735; 83880; 84100; 84134; 84436; 84443; 84484; 85025; 85045; 85610; 85730; 86360; 86886; 86900; 86901; 86920; 87040; 87081; 87086; 88305; 93005; 93925; 93970; 99285; J1956; J2001; J2250; J2916; J2930; J3010; J3475; J3480; J7030; J7042; P9016; Q0092; Q0163

== ENCOUNTER 2019-11-14 15:05 | Emergency (ER) | payer OTHER ==
[~2019-11-14] VITALS: Ht 180.3 cm; Wt 63.5 kg
[~2019-11-14 15:05] MED LIST changes: +ACET-787 PO; +ASPI-1822 PO; -AZIT250T3 PO; -CHOL100011 PO; -FLUT1BLS IH; +FURO-572 PO; +FURO20TA8 PO; -GABA600T1 PO; +GABA600T12 PO; -HYDR25TA32 PO; +LACT10CA1 PO; +LEVO500T2 PO; -PRED20TA5 PO; +ROFL250T PO; -SENN-3 PO; -SULF-59 PO; -UMEC62.5 IH
[2019-11-14 15:09] VITALS: BP 148/112
--- NOTE | 2019-11-14 15:13 | NUR ---
PT W/C ASSISTED TO BED 4.
--- NOTE | 2019-11-14 15:20 | NUR ---
I74 YO MALE CO ABD PAIN AND CONSTIPATION LAST 3 DAYS. PT ALSO STATES THAT HE HAS NOT HAD A BM IN 3 DAYS. OLD ABD HERNIA. BS HYPOACTIVE IN ALL QUADS. NO PAIN WITH PALPATION HX HIV, HTN, CHRONIC BACK PAIN
--- NOTE | 2019-11-14 15:21 | NUR ---
Dr. Hills is evaluating the patient at bedside.
[2019-11-14] MEDS ORDERED: KETOROLAC 30 MG/ML VIAL IM ONE (15:25)
[2019-11-14] MEDS ORDERED: LACTULOSE 20 GM/30 ML UDC PO ONE (15:55)
[2019-11-14 16:20] LABS: BASOPHILS % (AUTO) 1.5 % (0.0-2.0); EOSINOPHILS % (AUTO) 0.1 % (0.0-4.0); HEMATOCRIT 35.4 % (36-52); HEMOGLOBIN 11.5 g/dL (12.0-18.0); LYMPHOCYTES # (AUTO) 0.6 K/uL (2.0-11.5); LYMPHOCYTES % (AUTO) 21.2 % (20.5-51.1); MEAN CORPUSCULAR HEMOGLOBIN 30 pg (27-31); MEAN CORPUSCULAR HGB CONC 33 g/dL (33-37); MEAN CORPUSCULAR VOLUME 90.9 fL (80-94); MONOCYTES # (AUTO) 0.2 K/uL (0.8-1.0); MONOCYTES % (AUTO) 7.7 % (1.7-9.3); NEUTROPHILS # (AUTO) 2.1 K/uL (1.8-7.7); NEUTROPHILS % (AUTO) 69.5 % (42.2-75.2); PLATELET COUNT (AUTO) 189 K/uL (140-450); RED BLOOD CELL COUNT(AUTO) 3.89 MIL/uL (4.20-6.10)
--- NOTE | 2019-11-14 16:22 | NUR ---
LACTULOSE ADMINISTERED PO
--- NOTE | 2019-11-14 16:22 | NUR ---
Note amelia in ED - 11/14/19 at 1624 by [facility] Patient discharged with v/s stable. Written and verbal after care instructions given and explained. Patient verbalized understanding. Ambulatory with steady gait. All questions addressed prior to discharge. Advised to follow up with PMD.
--- NOTE | 2019-11-14 16:23 | NUR ---
NADR, PAIN 10/09. INSTRUCTED PT THAT ONCE HE HAS A BOWEL MOVEMENT HE WILL HAVE MORE RELIEF
[2019-11-14 16:32] LABS: ALBUMIN 3.3 g/dL (3.4-5.0); ANION GAP 15.8 (8-16); ASPARTATE AMINOTRANSFERASE 69 U/L (15-37); CARBON DIOXIDE 25.4 mmol/L (21-32); CHLORIDE 103 mmol/L (98-107); CREATININE 1.2 mg/dL (0.6-1.3); GLUCOSE 110 mg/dL (74-106); LIPASE 77 U/L (73-393); POTASSIUM 3.2 mmol/L (3.5-5.1); SODIUM SERUM 141 mmol/L (136-145); TOTAL BILIRUBIN 0.5 mg/dL (0.0-1.0); UREA NITROGEN, BLOOD 13 mg/dL (7-18)
[2019-11-14] MEDS ORDERED: POTASSIUM CHLORIDE 10 MEQ TABER PO ONE (17:00)
--- NOTE | 2019-11-14 17:00 | NUR ---
PT REPORTS NO NEED TO USE RESTROOM YET
--- NOTE | 2019-11-14 17:01 | NUR ---
Dr. Hills is evaluating the patient at bedside.
--- NOTE | 2019-11-14 17:06 | NUR ---
POTASSIUM PO ADMINISTERED
[2019-11-14 17:28] VITALS: BP 140/99
--- NOTE | 2019-11-14 17:28 | NUR ---
Patient discharged with v/s stable. Written and verbal after care instructions given and explained REGARDING CONSTIPATION AND LOW POTASSIUM. Patient alert, oriented and verbalized understanding of instructions. All questions addressed prior to discharge. ID band removed. Patient advised to follow up with PMD. Rx of LACTULOSE given. TO TAKE 2X/DAY FOR 4-5 DAYS. Patient educated on indication of medication including possible reaction and side effects. Opportunity to ask questions provided and answered. PT INSTRUCTED TO INCREASE POTASSIUM RICH FOODS PT INSTRUCTED TO RETURN TO ER IF HE CAN NOT HAVE A BOWEL MOVEMENT PT STATES HIS NIECE WILL BE PICKING HIM UP. PT WILL BE WHEELCHAIRED TO CAR
--- NOTE | 2019-11-14 17:28 | NUR ---
NADR, PAIN 10/09
== END 2019-11-14 17:28 | disposition home or self-care (01) ==
LOC: MED 15:05
DX: K59.00 Constipation, unspecified (principal); E87.6 Hypokalemia; J44.9 Chronic obstructive pulmonary disease, unspecified; Z88.0 Allergy status to penicillin; Z79.899 Other long term (current) drug therapy; Z79.82 Long term (current) use of aspirin
CPT/HCPCS: 36415; 74018; 80053; 83690; 85025; 96372; 99284; J1885; Q0092